=== PATIENT | female | born 1975 | race Asian ===

== ENCOUNTER 2016-12-10 09:16 | Outpatient (CLI) | payer BC ==
[2016-12-10 13:54] LABS: BASOPHILS % (AUTO) 0.7 %; EOSINOPHILS # (AUTO) 0.1 10^3/uL (0.0-0.7); EOSINOPHILS % (AUTO) 0.9 %; HCT - HEMATOCRIT 43.2 % (37.0-47.0); HGB - HEMOGLOBIN 14.9 g/dL (12.0-16.0); LYMPHOCYTES # (AUTO) 2.7 10^3/uL (1.5-3.5); LYMPHOCYTES % (AUTO) 36.1 %; MEAN CORPUSCULAR HEMOGLOBIN 31.4 pg (27.0-31.0); MEAN CORPUSCULAR HGB CONC 34.4 g/dL (32.0-36.0); MEAN CORPUSCULAR VOLUME 91.1 fL (81.0-99.0); MEAN PLATELET VOLUME 7.7 fL (7.9-10.8); MONOCYTES # (AUTO) 0.5 10^3/uL (0.0-1.0); NEUTROPHILS # (AUTO) 4.1 10^3/uL (1.5-6.6); NEUTROPHILS % (AUTO) 55.3 %; RED BLOOD COUNT 4.74 10^6/uL (4.20-5.40); RED CELL DISTRIBUTION WIDTH 12.3 % (12.0-15.0); UNCORRECTED WHITE BLOOD COUNT 7.3 x10^3/uL; WHITE BLOOD COUNT 7.3 x10^3/uL (4.8-10.8)
[2016-12-10 14:32] LABS: ALBUMIN/GLOBULIN RATIO 1.4 (1.0-2.2); BUN - BLOOD UREA NITROGEN 15 mg/dL (6-20); CALCIUM 9.3 mg/dL (8.5-10.3); CARBON DIOXIDE - CO2 29 mmol/L (21-32); CHLORIDE 98 mmol/L (101-111); CHOL/HDL RATIO 3.2 (<4.4); CHOLESTEROL 182 mg/dL; CREATININE 0.5 mg/dL (0.4-1.0); GFR - MDRD 135 (>89); GLUCOSE 101 mg/dL (70-100); HDL CHOLESTEROL 57 mg/dL; LDL/HDL RATIO 1.8 (<4.4); POTASSIUM 3.1 mmol/L (3.5-5.0); SODIUM 136 mmol/L (135-145); TOTAL PROTEIN 8.3 g/dL (6.7-8.2); TRIGLYCERIDES 108 mg/dL; VLDL CHOLESTEROL 22 mg/dL
== END 2016-12-10 23:59 | disposition home or self-care (01) ==
LOC: LAB.WCP 09:16
PROVIDERS: ATTEND Family Medicine
DX: I10 Essential (primary) hypertension (principal)
CPT/HCPCS: 36415; 80053; 80061; 82088; 84244; 85025

== ENCOUNTER 2017-04-11 16:14 | Outpatient (CLI) | payer BC | END 2017-04-11 16:15 | disposition home or self-care (01) | LOC: LAB.R 16:14 | PROVIDERS: ATTEND Family Medicine | DX: R31.9 Hematuria, unspecified (principal) | CPT/HCPCS: 87086 ==

== ENCOUNTER 2017-05-06 15:52 | Outpatient (CLI) | payer BC ==
--- NOTE | 2017-05-11 17:29 | Mammography Report ---
DIGITAL BILATERAL SCREENING MAMMOGRAM: 05/06/2017 COMPARISON STUDY: Mammogram 08/23/2014. DIGITAL TECHNIQUE: Routine CC and MLO projections were obtained of the breasts. FINDINGS: Scattered fibroglandular tissue is present within the breasts. There are no dominant avtar s, suspicious microcalcifications, or secondary signs of malignancy. In comparison to the previous st udies, there are no significant changes. There is a scar marker over the right breast. ASSESSMENT: NO MAMMOGRAPHIC EVIDENCE OF MALIGNANCY. NO SIGNIFICANT INTERVAL CHANGES. RECOMMENDATION: Screening mammography is recommended annually. BI-RADS category 2. Benign findings. STANDARD QUALIFYING STATEMENTS 1. This examination was reviewed with the aid of Computed-Aided Detection (CAD). 2. A negative or benign imaging report should not delay biopsy if clinically suspicious findings are present. Consider surgical consultation if warranted. More than 5% of cancers are not identified by i maging. 3. Dense breasts may obscure an underlying neoplasm. JOB #: [id number] EXT JOB #:[id number]
== END 2017-05-06 15:53 | disposition home or self-care (01) ==
LOC: DI.N 15:52
PROVIDERS: ATTEND Family Medicine
DX: Z12.31 Encounter for screening mammogram for malignant neoplasm of breast (principal)
CPT/HCPCS: 77067

== ENCOUNTER 2017-09-13 08:00 | Outpatient (CLI) | payer BC | END 2017-09-13 08:01 | disposition home or self-care (01) | LOC: LAB.WCP 08:00 | PROVIDERS: ATTEND Family Medicine | DX: N89.8 Other specified noninflammatory disorders of vagina (principal) | CPT/HCPCS: 87480; 87491; 87510; 87591; 87660 ==

== ENCOUNTER 2017-11-07 08:00 | Outpatient (CLI) | payer BC ==
[2017-11-07 13:13] LABS: ALBUMIN 4.2 g/dL (3.2-5.5); ALBUMIN/GLOBULIN RATIO 1.3 (1.0-2.2); ALKALINE PHOSPHATASE 44 IU/L (42-121); ALT ALANINE AMINOTRANSFERASE 17 IU/L (10-60); AST ASPARTATE AMINOTRANSFERASE 17 IU/L (10-42); BILIRUBIN,TOTAL 0.5 mg/dL (0.2-1.0); BUN - BLOOD UREA NITROGEN 14 mg/dL (6-20); CALCIUM 8.9 mg/dL (8.5-10.3); CARBON DIOXIDE - CO2 30 mmol/L (21-32); CHLORIDE 97 mmol/L (101-111); CREATININE 0.6 mg/dL (0.4-1.0); GFR - MDRD 109 (>89); GLUCOSE 104 mg/dL (70-100); SODIUM 135 mmol/L (135-145); TOTAL PROTEIN 7.5 g/dL (6.7-8.2)
[2017-11-07 13:24] LABS: HB2 TOTAL 15.2 g/dL; HEMOGLOBIN A1C 0.56 g/dL; HEMOGLOBIN A1C % 5.5 % (4.6-6.2)
[2017-11-07 13:27] LABS: BASOPHILS # (AUTO) 0.1 10^3/uL (0.0-0.1); BASOPHILS % (AUTO) 1.1 %; EOSINOPHILS # (AUTO) 0.5 10^3/uL (0.0-0.7); EOSINOPHILS % (AUTO) 5.5 %; HGB - HEMOGLOBIN 13.9 g/dL (12.0-16.0); LYMPHOCYTES # (AUTO) 1.9 10^3/uL (1.5-3.5); LYMPHOCYTES % (AUTO) 23.6 %; MEAN CORPUSCULAR HEMOGLOBIN 32.2 pg (27.0-31.0); MEAN CORPUSCULAR HGB CONC 35.4 g/dL (32.0-36.0); MEAN CORPUSCULAR VOLUME 90.9 fL (81.0-99.0); MEAN PLATELET VOLUME 7.1 fL (7.9-10.8); MONOCYTES # (AUTO) 0.5 10^3/uL (0.0-1.0); MONOCYTES % (AUTO) 5.7 %; NEUTROPHILS # (AUTO) 5.3 10^3/uL (1.5-6.6); NEUTROPHILS % (AUTO) 64.1 %; PLT - PLATELET COUNT 431 10^3/uL (130-450); RED BLOOD COUNT 4.34 10^6/uL (4.20-5.40); RED CELL DISTRIBUTION WIDTH 12.9 % (12.0-15.0); WHITE BLOOD COUNT 8.2 x10^3/uL (4.8-10.8)
== END 2017-11-07 23:59 ==
LOC: LAB.WCP 08:00
PROVIDERS: ATTEND Family Medicine
DX: Z00.00 Encounter for general adult medical examination without abnormal findings (principal); N92.0 Excessive and frequent menstruation with regular cycle
CPT/HCPCS: 36415; 80053; 83036; 84443; 85025

== ENCOUNTER 2017-11-10 07:33 | Outpatient (CLI) | payer BC ==
[2017-11-10 13:40] LABS: CALCIUM 8.6 mg/dL (8.5-10.3); CREATININE 0.5 mg/dL (0.4-1.0)
== END 2017-11-10 07:34 | disposition home or self-care (01) ==
LOC: LAB.WCP 07:33
PROVIDERS: ATTEND Family Medicine
DX: I10 Essential (primary) hypertension (principal)
CPT/HCPCS: 36415; 80048

== ENCOUNTER 2018-03-10 08:00 | Outpatient (CLI) | payer BC ==
[2018-03-10 12:26] LABS: BASOPHILS # (AUTO) 0.1 10^3/uL (0.0-0.1); BASOPHILS % (AUTO) 0.7 %; EOSINOPHILS # (AUTO) 0.2 10^3/uL (0.0-0.7); EOSINOPHILS % (AUTO) 2.1 %; HGB - HEMOGLOBIN 13.8 g/dL (12.0-16.0); LYMPHOCYTES # (AUTO) 1.8 10^3/uL (1.5-3.5); LYMPHOCYTES % (AUTO) 24.3 %; MEAN CORPUSCULAR HEMOGLOBIN 30.6 pg (27.0-31.0); MEAN CORPUSCULAR HGB CONC 34.1 g/dL (32.0-36.0); MEAN CORPUSCULAR VOLUME 89.6 fL (81.0-99.0); MEAN PLATELET VOLUME 7.1 fL (7.9-10.8); MONOCYTES # (AUTO) 0.6 10^3/uL (0.0-1.0); MONOCYTES % (AUTO) 7.8 %; NEUTROPHILS # (AUTO) 4.9 10^3/uL (1.5-6.6); NEUTROPHILS % (AUTO) 65.1 %; PLT - PLATELET COUNT 392 10^3/uL (130-450); RED BLOOD COUNT 4.52 10^6/uL (4.20-5.40); RED CELL DISTRIBUTION WIDTH 13.8 % (12.0-15.0); WHITE BLOOD COUNT 7.6 x10^3/uL (4.8-10.8)
== END 2018-03-10 08:01 ==
LOC: LAB.WCP 08:00
PROVIDERS: ATTEND Family Medicine
DX: N92.0 Excessive and frequent menstruation with regular cycle (principal)
CPT/HCPCS: 36415; 85025

== ENCOUNTER 2018-03-18 12:59 | Outpatient (CLI) | payer BC ==
--- NOTE | 2018-03-18 15:22 | Ultrasound Report ---
Reason: VAGINAL BLEEDING,ABNORMAL Procedure Date: 03/18/2018 Accession Number: [id number] / [id number] Procedure: US - Pelvic w/Transvaginal CPT Code: FULL RESULT: EXAM: PELVIC ULTRASOUND EXAM DATE: 03/18/2018 01:48 PM. CLINICAL HISTORY: VAGINAL BLEEDING,ABNORMAL. COMPARISON: 01/07/2015. TECHNIQUE: Realtime transabdominal pelvic scan performed to identify the uterus and adnexa and as an overview of other pelvic structures, followed by transvaginal scan to provide greater detail of the uterus and adnexa, with static image documentation. FINDINGS: Uterus: 7.4 x 4.1 x 4.3 cm, volume 68.2 cc. Anteverted position. Normal overall size and echotexture. Masses: None. Endometrium: 19 mm. Mildly thickened but otherwise normal in appearance without discrete mass or abnormal vascularity. Cervix: Unremarkable. Right Ovary: 4.2 x 2.6 x 4.2 cm, volume 24 cc. Normal echotexture and blood flow. Simple appearing cyst measures up to 3 cm. Left Ovary: 1.9 x 1.9 x 1.7 cm, volume 3.2 cc. Normal echotexture and blood flow. Free Fluid: None. Other: None. IMPRESSION: 1. Mildly thickened endometrium without discrete mass or abnormal vascularity. The primary differential diagnosis is endometrial hyperplasia. 2. Simple appearing right ovarian cyst. RADIA
== END 2018-03-18 13:00 | disposition home or self-care (01) ==
LOC: DI 12:59
PROVIDERS: ATTEND Family Medicine
DX: R93.8 Abnormal findings on diagnostic imaging of other specified body structures (principal); N83.291 Other ovarian cyst, right side
CPT/HCPCS: 76830; 76856

== ENCOUNTER 2018-05-16 16:04 | Outpatient (CLI) | payer BC | END 2018-05-16 16:05 | disposition home or self-care (01) | LOC: LAB.R 16:04 | PROVIDERS: ATTEND Obstetrics & Gynecology | DX: N76.0 Acute vaginitis (principal) | CPT/HCPCS: 87480; 87510; 87660 ==

== ENCOUNTER 2018-10-20 16:15 | Emergency (ER) | payer BC, OTHER ==
[2018-10-20 16:25] VITALS: BP 194/110
--- NOTE | 2018-10-20 16:55 | ED Physician Documentation ---
History of Present Illness - Stated complaint Stated Complaint: HBP - Chief complaint Chief Complaint: Cardiac - History obtained from History obtained from: Patient - History of Present Illness Timing: Chronic Pain level max: 0 Pain level now: 0 - Additonal information Additional information: 43-year-old female with past medical history of hypertension. Stopped her medications a year ago because her potassium was low. Has not seen her doctor since stopping her medications. Went to the [facility] today and noted that her blood pressure was high and sent here for evaluation. She is asymptomatic. No headache. No chest pain. No focal neurological deficits. No shortness of breath. No vision changes. Review of Systems Constitutional: denies: Fever, Chills Eyes: denies: Decreased vision, Photophobia Ears: denies: Ear pain Nose: denies: Rhinorrhea / runny nose, Congestion Cardiac: denies: Chest pain / pressure Respiratory: denies: Cough GI: denies: Nausea, Vomiting, Diarrhea Skin: denies: Rash Musculoskeletal: denies: Neck pain, Back pain Neurologic: denies: Focal weakness, Numbness, Headache PD PAST MEDICAL HISTORY - Past Medical History Past Medical History: Yes Cardiovascular: Hypertension - Past Surgical History Past Surgical History: No - Present Medications Home Medications: Ambulatory Orders Medication Instructions Recorded Confirmed Lisinopril 10 mg PO DAILY #30 tablet 10/20/18 - Allergies Allergies/Adverse Reactions: Allergies Allergy/AdvReac Type Severity Reaction Status Date / Time aspirin Allergy Unknown Verified 10/20/18 16:26 ibuprofen Allergy Unknown Verified 10/20/18 16:26 - Living Situation Living Situation: reports: With family Living Arrangement: reports: At home - Social History Does the pt smoke?: No Does the pt have substance abuse?: No PD ED PE NORMAL - Vitals Vital signs reviewed: Yes - General General: Alert and oriented X 3, No acute distress, Well developed/nourished - HEENT HEENT: PERRL, Moist mucous membranes - Neck Neck: Supple, no meningeal sign - Cardiac Cardiac: RRR, Strong equal pulses - Respiratory Respiratory: No respiratory distress, Clear bilaterally - Abdomen Abdomen: Soft, Non tender, Non distended - Derm Derm: Warm and dry, No rash - Extremities Extremities: No edema, No calf tenderness / cord - Neuro Neuro: Alert and oriented X 3 - Psych Psych: Normal mood, Normal affect Results - Vitals Vitals: Vital Signs - 24 hr 10/20/18 16:18 Temperature 36.8 C Heart Rate 80 Respiratory 18 Rate Blood Pressure 194/110 H O2 Saturation 98 Oxygen O2 Source Room air - EKG (time done) 1644 Rate: Rate (enter#) (72) Rhythm: NSR [place]: Normal Intervals: Normal [place] QRS: Normal Ischemia: Normal ST segments PD MEDICAL DECISION MAKING - ED course Complexity details: considered differential, d/w patient ED course: 43-year-old female with asymptomatic hypertension. We will start on lisinopril. We will have her follow-up with your doctor for further care. Patient counseled regarding signs and symptoms for which I believe and urgent re-evaluation would be necessary. Patient with good understanding of and agreement to plan and is comfortable going home at this time This document was made in part using voice recognition software. While efforts are made to proofread this document, sound alike and grammatical errors may occur. Departure - Departure Disposition: 01 Home, Self Care Clinical Impression: Hypertension Qualifiers: Hypertension type: unspecified Qualified Code(s): I10 - Essential (primary) hypertension Condition: Good Instructions: ED HTN Established Follow-Up: Medina Hammond DO [Primary Care Provider] - Within 1 week Prescriptions: Lisinopril 10 mg PO DAILY #30 tablet Comments: Your prescription was sent to [facility] in [place]. Return if you worsen. Follow-up with your doctor for further adjustment of your medications. You should take your blood pressure daily so your doctor can adjust your medications. Discharge Date/Time: 10/20/18 17:03
== END 2018-10-20 17:03 | disposition home or self-care (01) ==
LOC: ED 16:15
DX: I10 Essential (primary) hypertension (principal)
CPT/HCPCS: 84436; 84443; 85027; 93005; 99283

== ENCOUNTER 2018-10-20 16:59 | Outpatient (CLI) | payer BC, OTHER ==
[2018-10-20 17:13] LABS: HGB - HEMOGLOBIN 14.2 g/dL (12.0-16.0); MEAN CORPUSCULAR HEMOGLOBIN 31.4 pg (27.0-31.0); MEAN CORPUSCULAR HGB CONC 34.2 g/dL (32.0-36.0); MEAN CORPUSCULAR VOLUME 91.8 fL (81.0-99.0); MEAN PLATELET VOLUME 6.5 fL (7.9-10.8); RED BLOOD COUNT 4.52 10^6/uL (4.20-5.40); RED CELL DISTRIBUTION WIDTH 12.6 % (12.0-15.0); WHITE BLOOD COUNT 7.7 x10^3/uL (4.8-10.8)
[2018-10-20 18:04] LABS: T4 (THYROXINE) 9.85 ug/dL (6.09-12.23)
[2018-10-20 18:08] LABS: THYROID STIMULATING HORMONE 2.58 uIU/mL (0.34-5.60)
== END 2018-10-20 17:00 | disposition home or self-care (01) ==
LOC: LAB 16:59
PROVIDERS: ATTEND Obstetrics & Gynecology
DX: N93.9 Abnormal uterine and vaginal bleeding, unspecified (principal)
CPT/HCPCS: 36415; 84436; 84443; 85027

== ENCOUNTER 2018-10-30 12:01 | Outpatient (CLI) | payer BC, OTHER ==
--- NOTE | 2018-10-30 15:38 | Ultrasound Report ---
Reason: VAGINAL BLEEDING,ABNORMAL Procedure Date: 10/30/2018 Accession Number: [id number] / [id number] Procedure: US - Pelvic w/Transvaginal CPT Code: FULL RESULT: EXAM: PELVIC ULTRASOUND EXAM DATE: 10/30/2018 12:54 PM. CLINICAL HISTORY: VAGINAL BLEEDING,ABNORMAL. COMPARISON: PELVIC W/TRANSVAGINAL 03/18/2018 1:16 PM. TECHNIQUE: Realtime transabdominal pelvic scan performed to identify the uterus and adnexa and as an overview of other pelvic structures, followed by transvaginal scan to provide greater detail of the uterus and adnexa, with static image documentation. FINDINGS: Uterus: 7.2 x 4.3 x 5.0 cm, volume 81 cc. Anteverted retroflexed. position. Heterogeneous coarse echotexture with distorted serosal contour and distortion of the endometrial outline. Masses: A subserosal fundal mass measuring 1.4 x 1.0 x 1.1 cm is noted as well as a submucosal heterogeneous mass close to the cervix which measures 1.2 x 1.3 cm. Subjectively, there is the suggestion of additional fibroids which are not clearly demarcated. Endometrium: 13 mm. Distorted contour. Cervix: Nabothian cysts are noted. Right Ovary: 2.6 x 1.7 x 1.7 cm, volume 3.9 cc. Normal echotexture and blood flow. Left Ovary: 3.8 x 1.9 x 3.9 cm, volume 14.5 cc. Multiple follicles are seen, dominant follicle measures 1.6 x 1.4 x 1.6 cm. Otherwise, normal echotexture and blood flow. Free Fluid: None. Other: None. IMPRESSION: Fibroid uterus. RADIA
== END 2018-10-30 12:02 | disposition home or self-care (01) ==
LOC: DI 12:01
PROVIDERS: ATTEND Obstetrics & Gynecology
DX: N93.9 Abnormal uterine and vaginal bleeding, unspecified (principal); D25.0 Submucous leiomyoma of uterus; D25.2 Subserosal leiomyoma of uterus
CPT/HCPCS: 76830; 76856

== ENCOUNTER 2018-11-02 07:30 | Outpatient (CLI) | payer BC, OTHER ==
[2018-11-02 13:23] LABS: ALBUMIN 4.4 g/dL (3.2-5.5); ALBUMIN/GLOBULIN RATIO 1.3 (1.0-2.2); ALKALINE PHOSPHATASE 52 IU/L (42-121); ALT ALANINE AMINOTRANSFERASE 12 IU/L (10-60); AST ASPARTATE AMINOTRANSFERASE 18 IU/L (10-42); BILIRUBIN,TOTAL 0.8 mg/dL (0.2-1.0); BUN - BLOOD UREA NITROGEN 16 mg/dL (6-20); CALCIUM 9.1 mg/dL (8.5-10.3); CARBON DIOXIDE - CO2 26 mmol/L (21-32); CHLORIDE 101 mmol/L (101-111); CHOL/HDL RATIO 3.5 (<4.4); CHOLESTEROL 167 mg/dL; CREATININE 0.5 mg/dL (0.4-1.0); GFR - MDRD 134 (>89); GLUCOSE 97 mg/dL (70-100); HDL CHOLESTEROL 48 mg/dL; LDL CHOLESTEROL,CALCULATED 107 mg/dL; LDL/HDL RATIO 2.2 (<4.4); SODIUM 136 mmol/L (135-145); TOTAL PROTEIN 7.7 g/dL (6.7-8.2); VLDL CHOLESTEROL 12 mg/dL
== END 2018-11-02 07:31 | disposition home or self-care (01) ==
LOC: LAB.WCP 07:30
PROVIDERS: ATTEND Nurse Practitioner
DX: I10 Essential (primary) hypertension (principal); Z13.228 Encounter for screening for other metabolic disorders; Z13.220 Encounter for screening for lipoid disorders
CPT/HCPCS: 36415; 80053; 80061; 83721

== ENCOUNTER 2018-11-15 09:26 | Day surgery (SDC) | payer BC, OTHER ==
[2018-11-15 09:51] LABS: HCG UR QUAL NEGATIVE
[2018-11-15] MEDS ORDERED: LACTATED RINGERS 1,000 ML IV ONE ×2 (10:03→12:58)
--- NOTE | 2018-11-15 10:14 | ANESTHESIA ---
Pre-Anesthesia VS, & Labs - Diagnosis Abnormal uterine bleeding, fibroid uterus - Procedure myosure hysterscopic myomectomy, D&C, novasure endometrial ablation Vital Signs: Temp Pulse Resp BP Pulse Ox 36.7 C 86 16 123/85 H 98 11/15/18 09:30 11/15/18 09:30 11/15/18 09:30 11/15/18 09:30 11/15/18 09:30 Height 4 ft 11 in Weight (kg) 55.2 kg Body Mass Index 25.2 - NPO Other Last Fluid Intake: 4oz black coffee at 0630 - Is Patient ?: No - Lab Results Current Lab Results: 10/20/18 14 Hgb 41 Hct 442 Plat Lab results reviewed: Yes Home Medications and Allergies Home Medications: Ambulatory Orders Cetirizine [ZyrTEC] 10 mg PO ONCE 11/15/18 Cetirizine [ZyrTEC] 10 mg PO ONCE 11/15/18 lisinopril Allergies/Adverse Reactions: Allergies Allergy/AdvReac Type Severity Reaction Status Date / Time aspirin Allergy facial Verified 11/07/18 16:56 swelling ibuprofen Allergy facial Verified 11/07/18 16:56 swelling naproxen [From Naprosyn] Allergy facial Verified 11/07/18 16:56 swelling Anes History & Medical History - Anesthetic History Anesthesia Complications: reports: No previous complications - Medical History Cardiovascular: reports: Hypertension Pulmonary: reports: None Gastrointestinal: reports: None Urinary: reports: None Neuro: reports: None Musculoskeletal: reports: None Endocrine/Autoimmune: reports: None Blood Disorders: reports: None Skin: reports: None Smoking Status: Never smoker Psychosocial: reports: No issues indicated - Surgical History Gynecologic: Other (breast) Exam General: Alert, Oriented x3, Cooperative, No acute distress Dental: Partials Upper Mouth Openin Fingerbreadth Neck Mobility: Normal Mallampati classification: I Thyromental Distance: 4-6 cm Respiratory: Lungs clear, Normal breath sounds, No respiratory distress, No accessory muscle use Cardiovascular: Regular rate, Normal S1, Normal S2, No murmurs Mental/Cognitive Status: Alert/Oriented X3, Normal for patient Plan Anesthesia Type: General Consent for Procedure(s) Verified and Reviewed: Yes Code Status: Attempt Resuscitation ASA classification: 2-Mild systemic disease Is this case an emergency?: No
[2018-11-15] MEDS ORDERED: LIDOCAINE 1% 50 ML MDV ONE (11:53)
[2018-11-15] MEDS ORDERED: BUPIVACAINE 0.5%-EPI 1:200000 PF 30 ML VIAL ONE (11:54)
[2018-11-15] MEDS ORDERED: VASOPRESSIN 20 UNIT/ML VIAL ONE (12:04)
[2018-11-15] MEDS ORDERED: BUPIVACAINE 0.5% PF 30 ML VIAL ONE (12:19)
[2018-11-15] MEDS ORDERED: LIDOCAINE-MPF 1% 5 ML VIAL SUBQ ONE (12:25)
[2018-11-15] MEDS ORDERED: ONDANSETRON 4 MG/2 ML VIAL IVP ONE (12:25)
[2018-11-15] MEDS ORDERED: MIDAZOLAM 2 MG/2 ML VIAL IVP ONE (12:25)
[2018-11-15] MEDS ORDERED: ACETAMINOPHEN 1,000 MG/100 ML 100 ML IV ONE (12:25)
[2018-11-15] MEDS ORDERED: PROPOFOL 200 MG/20 ML VIAL IVP ONE (12:25)
[2018-11-15] MEDS ORDERED: fentaNYL 100 MCG/2 ML VIAL IVP ONE (12:25)
[2018-11-15] MEDS ORDERED: DEXAMETHASONE 4 MG/ML VIAL IVP ONE (12:25)
[2018-11-15] MEDS ORDERED: BUPIVACAINE 0.5% PF 30 ML VIAL INFIL ONE ×2 (12:32)
[2018-11-15] MEDS ORDERED: HYDROmorphone 0.5 MG/0.5 ML SYRINGE IVP PRN (12:56)
[2018-11-15] MEDS ORDERED: oxyCODONE 5 MG TABLET PO PRN (12:56)
[2018-11-15] MEDS ORDERED: ONDANSETRON 4 MG/2 ML VIAL IVP PRN (12:56)
--- NOTE | 2018-11-15 12:56 | OPERATIVE REPORT ---
Operative Report - General Procedure Date: 11/15/18 Planned Procedure: Hysteroscopic polypectomy vs. myomectomy, endometrial ablation Pre-Op Diagnosis: AUB, intracavitary mass Procedure Performed: Hysteroscopic polypectomy, endometrial ablation novasure Post Op Diagnosis: same - Procedure Note Primary Surgeon: Manuelito Anesthesia Technique: General LMA Pathology: endometrial sampling IV Fluids (mL): 500 Estimated Blood Loss (mL): 10 Urine Output (mL): 0 Findings: Endometrial polyp resected. Both ostea seen. Normal cavity. Complications: none
--- NOTE | 2018-11-15 12:59 | Discharge Plan ---
Discharge Plan Disposition: 01 Home, Self Care Condition: Good Diet: Regular Activity Restrictions: pelvic rest Shower Restrictions: No Driving Restrictions: Yes (not for 24 hours) No Smoking: If you smoke, Please STOP! Call for help. Follow-up with: Lisa Billings MD [Provider Admit Priv/Credential] -
--- NOTE | 2018-11-15 13:48 | OPERATIVE REPORT ---
DATE OF SERVICE: 11/15/2018 Physician: Lisa Billings MD PREOPERATIVE DIAGNOSES 1. Abnormal uterine bleeding. 2. Intracavitary mass on ultrasound. POSTOPERATIVE DIAGNOSES 1. Abnormal uterine bleeding. 2. Endometrial polyp. PROCEDURE PERFORMED 1. Hysteroscopic dilation and curettage, polypectomy. 2. NovaSure endometrial ablation. SURGEON: Lisa Billings MD SENIOR JAVA UI DEVELOPER: None. ANESTHESIA: General. ESTIMATED BLOOD LOSS: 10 mL INTRAVENOUS FLUIDS: 500 mL URINE OUTPUT: 0 mL COUNTS: Correct x2. COMPLICATIONS: None apparent. DISPOSITION: Stable to the recovery room. PROPHYLAXIS: SCD and NICANOR hose to bilateral lower extremities. No antibiotics indicated. SPECIMENS: Endometrial curettings to Pathology. FINDINGS: There was an endometrial polyp present in the uterine cavity. The endometrium was shaggy. Both tubal ostia were seen. There were no cavity-distorting masses. DESCRIPTION OF PROCEDURE: Patient was brought to the operating room, and then she was induced with g eneral anesthesia. She was placed in low lithotomy in [facility]. A bimanual examination re vealed an anteverted uterus that was normal in size. The patient was prepped with chlorhexidine, as she had an ALLERGY TO SHRIMP. The chlorhexidine was diluted 50:50. The vagina was irrigated copious ly at the end of the procedure. She was draped in the usual sterile fashion. An open-sided speculum was placed and a single-tooth tenaculum was applied to the anterior lip of the cervix. The cervix w as already dilated to 8 mm. The hysteroscope was inserted into the uterine cavity. The polyp was vi sualized and so the MyoSure was called for. The patient underwent MyoSure resection of her polyp. S he then underwent some endometrial thinning with the MyoSure in order to send a complete sample to [facility]. The hysteroscope was removed. The uterus sounded to 7 cm, the cervix was 3 cm long, intrac avitary length was 4.5 cm. The NovaSure device was inserted into the uterine cavity, per manufacture r's guidelines. The fan was opened and moved vigorously in the uterus to seat it appropriately. The width was 3.3 cm. Patient had a normal seal test. She then underwent an ablation cycle lasting 1 m inute and 15 seconds with a power of 73 doyle. The hysteroscope was reinserted into the uterine cavi ty and good desiccation was seen. Her fluid deficit was 310 mL. All instruments were removed from t he vagina. The blood was washed from her body. She was returned to the supine position prior to wak ing. TD: 11/15/2018 13:31
[2018-11-15 14:17] VITALS: BP 137/85
== END 2018-11-15 09:27 | disposition home or self-care (01) ==
LOC: SDS 09:26
PROVIDERS: ATTEND Obstetrics & Gynecology
PROC: 0UB98ZX Excision of Uterus, Via Natural or Artificial Opening Endoscopic, Diagnostic (ICD-10-PCS; principal; 2018-11-15 11:30)
PROC: 0UDB8ZX Extraction of Endometrium, Via Natural or Artificial Opening Endoscopic, Diagnostic (ICD-10-PCS; 2018-11-15 11:30)
DX: N93.9 Abnormal uterine and vaginal bleeding, unspecified (principal); D25.0 Submucous leiomyoma of uterus; D25.2 Subserosal leiomyoma of uterus; I10 Essential (primary) hypertension
CPT/HCPCS: 58558; 81025; J0131; J7120

== ENCOUNTER 2018-12-12 14:33 | Outpatient (CLI) | payer BC, OTHER ==
--- NOTE | 2018-12-13 11:02 | Mammography Report ---
Reason: SCREENING MAMMO Procedure Date: 12/12/2018 Accession Number: [id number] / [id number] Procedure: MGN - Screening Mammo Dig Bilat CPT Code: FULL RESULT: EXAM: Screening Mammo Dig Bilat DATE: 12/12/2018 3:00 PM CLINICAL HISTORY: Routine screening nulliparous patient TECHNIQUE: (B) - Bilateral CC and MLO views were obtained. COMPARISON: 05/06/2017 08/23/2014 PARENCHYMAL PATTERN: (VD) - The breasts demonstrate extremely dense parenchyma bilaterally, limiting the sensitivity of mammography. FINDINGS: No significant interval change. There are no suspicious masses, calcifications, or areas of distortion. IMPRESSION: Negative examination. BI-RADS category 1. RECOMMENDATION: (ANNUAL) - Recommend routine annual screening mammography. BI-RADS CATEGORY: (1) - Negative. STANDARD QUALIFYING STATEMENTS: 1. This examination was not reviewed with the aid of Computer-Aided Detection (CAD). 2. A negative or benign imaging report should not preclude biopsy if clinically suspicious findings are present. 3. Dense breasts may obscure an underlying neoplasm. 4. This examination was reviewed without the aid of 3D breast imaging (tomosynthesis).
== END 2018-12-12 14:34 | disposition home or self-care (01) ==
LOC: DI.N 14:33
DX: Z12.31 Encounter for screening mammogram for malignant neoplasm of breast (principal)
CPT/HCPCS: 77067

== ENCOUNTER 2019-01-02 13:00 | Outpatient (CLI) | payer BC, OTHER ==
[2019-01-02 19:22] LABS: BASOPHILS # (AUTO) 0.1 10^3/uL (0.0-0.1); BASOPHILS % (AUTO) 0.7 %; EOSINOPHILS # (AUTO) 0.1 10^3/uL (0.0-0.7); EOSINOPHILS % (AUTO) 1.5 %; HGB - HEMOGLOBIN 12.2 g/dL (12.0-16.0); LYMPHOCYTES # (AUTO) 1.9 10^3/uL (1.5-3.5); MEAN CORPUSCULAR HGB CONC 30.7 g/dL (32.0-36.0); MEAN CORPUSCULAR VOLUME 91.5 fL (81.0-99.0); MEAN PLATELET VOLUME 9.1 fL (7.9-10.8); MONOCYTES # (AUTO) 0.5 10^3/uL (0.0-1.0); MONOCYTES % (AUTO) 5.7 %; NEUTROPHILS # (AUTO) 6.8 10^3/uL (1.5-6.6); NEUTROPHILS % (AUTO) 71.8 %; PLT - PLATELET COUNT 428 10^3/uL (130-450); RED BLOOD COUNT 4.35 10^6/uL (4.20-5.40); RED CELL DISTRIBUTION WIDTH 12.6 % (12.0-15.0); WHITE BLOOD COUNT 9.5 x10^3/uL (4.8-10.8)
[2019-01-02 19:39] LABS: ALBUMIN 4.1 g/dL (3.2-5.5); ALBUMIN/GLOBULIN RATIO 1.1 (1.0-2.2); BILIRUBIN,TOTAL 0.6 mg/dL (0.2-1.0); CALCIUM 9.3 mg/dL (8.5-10.3); CREATININE 0.6 mg/dL (0.4-1.0); TOTAL PROTEIN 7.9 g/dL (6.7-8.2)
== END 2019-01-02 13:01 | disposition home or self-care (01) ==
LOC: LAB.WCP 13:00
PROVIDERS: ATTEND Physician Assistant Medical
DX: R10.32 Left lower quadrant pain (principal)
CPT/HCPCS: 36415; 80053; 83690; 85025

== ENCOUNTER 2019-01-08 14:43 | Outpatient (CLI) | payer BC, OTHER ==
--- NOTE | 2019-01-09 11:13 | Ultrasound Report ---
Reason: ABDOMINAL PAIN, LLQ Procedure Date: 01/08/2019 Accession Number: [id number] / [id number] Procedure: US - Pelvic w/Transvaginal CPT Code: FULL RESULT: EXAM: PELVIC ULTRASOUND EXAM DATE: 01/08/2019 03:53 PM. CLINICAL HISTORY: Abdominal pain, LLQ. COMPARISON: PELVIC W/TRANSVAGINAL 10/30/2018 12:13 PM. PELVIC W/TRANSVAGINAL 03/18/2018 1:16 PM. TECHNIQUE: Realtime transabdominal pelvic scan performed to identify the uterus and adnexa and as an overview of other pelvic structures, followed by transvaginal scan to provide greater detail of the uterus and adnexa, with static image documentation. FINDINGS: Uterus: 6.9 x 4.3 x 5.7 cm, volume 90 cc. Anteverted position. Normal overall size and echotexture. Masses: In the left posterior uterus is a 3.6 x 1.7 x 2.3 cm fibroid with submucosal component. Endometrium: 6.3 mm. Normal. Cervix: Unremarkable. Right Ovary: 3.5 x 1.7 x 2.3 cm, volume 7.8 cc. Normal echotexture and blood flow. Left Ovary: 5.5 x 4.0 x 4.0 cm, volume 46.5 cc. There is a 4.3 x 2.6 x 2.6 cm cyst. Blood flow is demonstrated by color Doppler. Free Fluid: None. Other: None. IMPRESSION: Left ovarian cyst as described, new or enlarged compared to October. Given that this is a new finding, it possibly accounts for the patient's pain. Recommend clinical management with consideration for imaging followup to resolution given symptoms. RADIA
== END 2019-01-08 14:44 | disposition home or self-care (01) ==
LOC: DI 14:43
PROVIDERS: ATTEND Physician Assistant Medical
DX: N83.202 Unspecified ovarian cyst, left side (principal)
CPT/HCPCS: 76830; 76856

== ENCOUNTER 2019-03-01 17:07 | Outpatient (CLI) | payer BC, OTHER ==
--- NOTE | 2019-03-04 09:25 | Ultrasound Report ---
Reason: OTHER OVARIAN CYST, LEFT SIDE Procedure Date: 03/01/2019 Accession Number: [id number] / [id number] Procedure: US - Pelvic w/Transvaginal CPT Code: FULL RESULT: EXAM: PELVIC ULTRASOUND EXAM DATE: 03/01/2019 06:56 PM. CLINICAL HISTORY: Left ovarian cyst. History of ablation. COMPARISON: PELVIC W/TRANSVAGINAL 01/08/2019 3:12 PM. TECHNIQUE: Realtime transabdominal pelvic scan performed to identify the uterus and adnexa and as an overview of other pelvic structures, followed by transvaginal scan to provide greater detail of the uterus and adnexa, with static image documentation. FINDINGS: Uterus: 6.8 x 4.6 x 5 cm, volume 82 cc. Anteverted position. Heterogeneous multi-fibroid appearance. Masses: Posterior fundal subserosal fibroid measuring 1.6 cm. Posterior intramural fibroid measuring 1.9 cm. Posterior intramural fibroid measuring 7 mm. Endometrium: 13 mm. Heterogeneous echotexture. Tiny cyst measuring 3 mm. No other mass identified. Cervix: Unremarkable. Nabothian cysts. Right Ovary: 2.5 x 1.9 x 2.4 cm, volume 6 cc. Dominant follicle measuring 17 mm. Unremarkable echotexture and blood flow. Left Ovary: 4.4 x 2.3 x 4.5 cm, volume 23.8 cc. Small complex cyst measuring 2.1 cm. Second complex cyst measuring 3.1 cm. Unremarkable echotexture and blood flow. Free Fluid: None. Other: None. IMPRESSION: 1. Mild heterogeneous uterine echotexture containing multiple probable fibroids. 2. Mild heterogeneous endometrium containing a tiny cyst measuring 3 mm. No other mass identified. 3. Left ovary contains two mildly complex hypoattenuating cystic structures, which may be hemorrhagic cysts. The largest measures 3.1 cm. Previous study demonstrated a cyst measuring 4.3 cm. RADIA
== END 2019-03-01 17:08 | disposition home or self-care (01) ==
LOC: DI 17:07
PROVIDERS: ATTEND Physician Assistant Medical
DX: N83.292 Other ovarian cyst, left side (principal); D25.2 Subserosal leiomyoma of uterus; D25.1 Intramural leiomyoma of uterus; N85.8 Other specified noninflammatory disorders of uterus
CPT/HCPCS: 76830; 76856

== ENCOUNTER 2019-10-25 14:41 | Outpatient (CLI) | payer BC, OTHER | END 2019-10-25 14:42 | disposition home or self-care (01) | LOC: COV 14:41 | PROVIDERS: ATTEND Family Medicine | DX: R05 Cough (principal) | CPT/HCPCS: 81599 ==

== ENCOUNTER 2019-11-19 17:29 | Emergency (ER) | payer BC, OTHER ==
[2019-11-19 18:13] LABS: BASOPHILS # (AUTO) 0.1 10^3/uL (0.0-0.1); BASOPHILS % (AUTO) 0.6 %; EOSINOPHILS # (AUTO) 0.3 10^3/uL (0.0-0.7); EOSINOPHILS % (AUTO) 2.5 %; HGB - HEMOGLOBIN 14.2 g/dL (12.0-16.0); LYMPHOCYTES # (AUTO) 2.9 10^3/uL (1.5-3.5); LYMPHOCYTES % (AUTO) 28.8 %; MEAN CORPUSCULAR HEMOGLOBIN 31.9 pg (27.0-31.0); MEAN CORPUSCULAR HGB CONC 34.5 g/dL (32.0-36.0); MEAN CORPUSCULAR VOLUME 92.6 fL (81.0-99.0); MEAN PLATELET VOLUME 8.5 fL (7.9-10.8); MONOCYTES # (AUTO) 0.8 10^3/uL (0.0-1.0); MONOCYTES % (AUTO) 8.3 %; NEUTROPHILS % (AUTO) 59.4 %; PLT - PLATELET COUNT 349 10^3/uL (130-450); RED BLOOD COUNT 4.45 10^6/uL (4.20-5.40); RED CELL DISTRIBUTION WIDTH 12.1 % (12.0-15.0)
[2019-11-19 18:16] LABS: BILIRUBIN,URINE NEGATIVE (NEGATIVE); GLUCOSE, URINE (UA) NEGATIVE (NEGATIVE); KETONES,URINE (UA) NEGATIVE (NEGATIVE); LEUKOCYTE ESTERASE, URINE SMALL (NEGATIVE); NITRITE,URINE NEGATIVE (NEGATIVE); OCCULT BLOOD,URINE LARGE (NEGATIVE); PH,URINE 6.5 PH (5.0-7.5); PROTEIN,URINE NEGATIVE (NEGATIVE); UROBILINOGEN,URINE 0.2 (NORMAL) E.U./dL (NORMAL)
[2019-11-19 18:17] LABS: CLARITY,URINE CLEAR (CLEAR)
[2019-11-19 18:18] LABS: HCG UR QUAL NEGATIVE
[2019-11-19] MEDS ORDERED: MORPHINE 2 MG/ML CARPUJECT IVP STA (18:18)
[2019-11-19 18:25] LABS: BACTERIA,URINE None Seen /HPF (None Seen); RBC,URINE 0-5 /HPF (0-5); SQUAMOUS EPITHELIAL CELL,UR MOD Squamous (<= Few)
[2019-11-19 18:26] LABS: ALBUMIN 4.7 g/dL (3.2-5.5); ALBUMIN/GLOBULIN RATIO 1.2 (1.0-2.2); BILIRUBIN,TOTAL 0.3 mg/dL (0.2-1.0); CALCIUM 9.3 mg/dL (8.5-10.3); CREATININE 0.6 mg/dL (0.4-1.0); TOTAL PROTEIN 8.6 g/dL (6.7-8.2)
--- NOTE | 2019-11-19 18:27 | ED Physician Documentation ---
History of Present Illness - Stated complaint Stated Complaint: ABD PAIN, BACK PAIN - Chief complaint Chief Complaint: Abd Pain - History obtained from History obtained from: Patient - History of Present Illness Timing: How many weeks ago (1) Pain level max: 8 Pain level now: 8 - Additonal information Additional information: 44-year-old female presents to the emergency department with left lower quadrant abdominal pain. This started approximately a week ago and is gradually worsened since that time. She is having vaginal spotting as well. No discharge. No itching. No pain. Has had ovarian cysts in the past. She states that this feels worse. She has not had any diarrhea or constipation. No changes in sexual partners. No IUD. No STD exposure. No fevers. Review of Systems Ten Systems: 10 systems reviewed and negative Constitutional: denies: Fever, Chills Ears: denies: Ear pain Nose: denies: Rhinorrhea / runny nose, Congestion Cardiac: denies: Chest pain / pressure Respiratory: denies: Cough GI: denies: Nausea, Vomiting, Diarrhea, Hematemesis, Bloody / black stool : denies: Dysuria, Frequency, Hesitancy, Discharge Skin: denies: Rash Musculoskeletal: denies: Neck pain, Back pain Neurologic: denies: Headache PD PAST MEDICAL HISTORY - Past Medical History Cardiovascular: Hypertension Respiratory: None Neuro: None Endocrine/Autoimmune: None GI: None : None HEENT: None Psych: None Musculoskeletal: None Derm: None - Past Surgical History 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 - Present Medications Home Medications: Ambulatory Orders Medication Instructions Recorded Confirmed lisinopriL [Lisinopril] 10 mg PO DAILY #30 tablet 10/20/18 11/15/18 Cetirizine [ZyrTEC] 10 mg PO ONCE 11/15/18 11/15/18 Hydrocodone/Acetaminophen 1 - 2 each PO Q6H PRN #14 tablet 11/19/19 [Hydrocodon-Acetaminophen 5-325] Norethindrone 0.35 mg PO DAILY #30 tablet 11/19/19 - Allergies Allergies/Adverse Reactions: Allergies Allergy/AdvReac Type Severity Reaction Status Date / Time aspirin Allergy facial Verified 11/19/19 17:45 swelling ibuprofen Allergy facial Verified 11/19/19 17:45 swelling naproxen [From Naprosyn] Allergy facial Verified 11/19/19 17:45 swelling - Social History Does the pt smoke?: No Smoking Status: Never smoker Does the pt drink ETOH?: No Does the pt have substance abuse?: No PD ED PE NORMAL - Vitals Vital signs reviewed: Yes - General General: Alert and oriented X 3, No acute distress, Well developed/nourished - HEENT HEENT: Moist mucous membranes - Neck Neck: Supple, no meningeal sign - Cardiac Cardiac: RRR, Strong equal pulses - Respiratory Respiratory: No respiratory distress, Clear bilaterally - Abdomen Abdomen: Soft, Non distended, Other (Tender to palpation left lower quadrant, right lower quadrant and suprapubic. No peritoneal signs) - Female Female : Pt declined - Back Back: No spinal TTP - Derm Derm: Warm and dry - Extremities Extremities: No edema, No calf tenderness / cord - Neuro Neuro: Alert and oriented X 3 - Psych Psych: Normal mood, Normal affect Results - Vitals Vitals: Vital Signs - 24 hr 11/19/19 11/19/19 11/19/19 17:46 17:52 19:52 Temperature 36.9 C 36.8 C Heart Rate 93 78 78 Respiratory 18 16 16 Rate Blood Pressure 139/91 H 112/65 122/82 H O2 Saturation 98 100 99 11/19/19 11/19/19 20:50 22:25 Temperature 36.7 C Heart Rate 62 86 Respiratory 16 12 Rate Blood Pressure 104/62 121/82 H O2 Saturation 99 99 Oxygen O2 Source Room air - Labs Labs: Laboratory Tests 11/19/19 11/19/19 11/19/19 18:00 18:07 18:07 WBC 10.0 RBC 4.45 Hgb 14.2 Hct 41.2 MCV 92.6 MCH 31.9 H MCHC 34.5 RDW 12.1 Plt Count 349 MPV 8.5 Neut # (Auto) 6.0 Lymph # (Auto) 2.9 [place] # (Auto) 0.8 Eos # (Auto) 0.3 Baso # (Auto) 0.1 Absolute Nucleated RBC 0.00 Nucleated RBC % 0.0 ESR Sodium 136 Potassium 3.9 Chloride 103 Carbon Dioxide 24 Anion Gap 9.0 BUN 11 Creatinine 0.6 Estimated GFR (MDRD) 108 Glucose 94 Calcium 9.3 Total Bilirubin 0.3 AST 16 ALT 12 Alkaline Phosphatase 54 C-Reactive Protein Total Protein 8.6 H Albumin 4.7 Globulin 3.9 Albumin/Globulin Ratio 1.2 Lipase 39 CA 125 Antigen Urine Color YELLOW Urine Clarity CLEAR Urine pH 6.5 Ur Specific [place] 1.015 Urine Protein NEGATIVE Urine Glucose (UA) NEGATIVE Urine Ketones NEGATIVE Urine Occult Blood LARGE H Urine Nitrite NEGATIVE Urine Bilirubin NEGATIVE Urine Urobilinogen 0.2 (NORMAL) Ur Leukocyte Esterase SMALL H Urine RBC 0-5 Urine WBC 4-5 Ur Squamous Epith Cells MOD Squamous H Urine Bacteria None Seen Ur Microscopic Review INDICATED Urine Culture Comments NOT INDICATED Urine HCG, Qual NEGATIVE 11/19/19 11/19/19 11/19/19 18:07 18:07 18:07 WBC RBC Hgb Hct MCV MCH MCHC RDW Plt Count MPV Neut # (Auto) Lymph # (Auto) [place] # (Auto) Eos # (Auto) Baso # (Auto) Absolute Nucleated RBC Nucleated RBC % ESR 28 H Sodium Potassium Chloride Carbon Dioxide Anion Gap BUN Creatinine Estimated GFR (MDRD) Glucose Calcium Total Bilirubin AST ALT Alkaline Phosphatase C-Reactive Protein < 1.0 Total Protein Albumin Globulin Albumin/Globulin Ratio Lipase CA 125 Antigen 73.3 H Urine Color Urine Clarity Urine pH Ur Specific [place] Urine Protein Urine Glucose (UA) Urine Ketones Urine Occult Blood Urine Nitrite Urine Bilirubin Urine Urobilinogen Ur Leukocyte Esterase Urine RBC Urine WBC Ur Squamous Epith Cells Urine Bacteria Ur Microscopic Review Urine Culture Comments Urine HCG, Qual - Rads (name of study) CT abdomen pelvis Radiology: Prelim report reviewed, EMP read contemporaneously, See rad report (Findings concerning for tubo-ovarian abscesses bilaterally. Gynecologic consultation is recommended.. 6 mm right upper nonobstructive renal calculus. ) Pelvic ultrasound Radiology: Prelim report reviewed, EMP read contemporaneously, See rad report (1. Heterogeneous fibroid uterus. 2. Enlargement of the ovaries. There are simp le cysts within the right ovary. There are complex hypoechoic structures possibly admissions representative of hemorrhagic cysts or endometriomas within the left ovary. 3. There are no sonographic findings suspicious for ovarian torsion. Non- measurement of venous flow within the right ovary is more likely a function of technical factors than pathology. ) PD MEDICAL DECISION MAKING - ED course Complexity details: reviewed results, re-evaluated patient, considered differential, d/w patient, d/w delivery consultant ED course: 44-year-old female with pelvic pain of unclear etiology. Possible bilateral tubo-ovarian abscess on CT scan. Ultrasound with enlarged ovaries, simple cyst in the right ovary complex cyst on the left ovary. Consulted gynecology. Dr. Richards came and evaluated the patient. She feels that this may be a post endometrial ablation syndrome. Patient does not have any risk factors for gonorrhea, chlamydia and PID. No leukocytosis or fever. CRP is negative. We will trial her on pain medication and norethindrone at home. Patient counseled regarding signs and symptoms for which I believe and urgent re-evaluation would be necessary. Patient with good understanding of and agreement to plan and is comfortable going home at this time This document was made in part using voice recognition software. While efforts are made to proofread this document, sound alike and grammatical errors may occur. Departure - Departure Disposition: 01 Home, Self Care Clinical Impression: Post endometrial ablation syndrome Condition: Good Instructions: ED Pelvic Pain [facility] Follow-Up: Medina Hammond DO [Primary Care Provider] - Melania Richards MD [Provider Admit Priv/Credential] - Prescriptions: Hydrocodone/Acetaminophen [Hydrocodon-Acetaminophen 5-325] 1 - 2 each PO Q6H PRN #14 tablet PRN Reason: pain Norethindrone 0.35 mg PO DAILY #30 tablet Comments: Follow-up with your doctor for further care. This appears to be a post endometrial ablation syndrome. Return if you worsen. Do not drink alcohol or drive while on narcotic pain medicine. Note that many narcotic pain relievers also contain tylenol/acetaminophen. Please ensure that your total dose of acetaminophen from all sources does not exceed 3 grams (3000mg) per day. You may constipated on this medication, take a stool softener such as "Colace" twice a day while you are on it. Also recommend a yptz-[id number]-uqyaiyb laxative such as senna or MiraLAX any day that you do not have a bowel movement. If you received narcotic pain medication in the emergency department, do not drive or operate machinery for the next 24 hours. Discharge Date/Time: 11/19/19 22:34
[2019-11-19] MEDS ORDERED: IOVERSOL 320 100 ML VIAL IVP ONE ×2 (18:28→19:15)
--- NOTE | 2019-11-19 19:15 | CT Report ---
Reason: LLShawn gonzalezn Procedure Date: 11/19/2019 Accession Number: [id number] / [id number] Procedure: CT - Abdomen/Pelvis W CPT Code: Final Report FULL RESULT: EXAM: CT ABDOMEN AND PELVIS EXAM DATE: 11/19/2019 06:48 PM. CLINICAL HISTORY: KARI alfred. COMPARISONS: None. TECHNIQUE: Routine helical CT imaging was performed through the abdomen and pelvis. IV contrast: 100 cc OPTIRAY 320. Enteric contrast: No. Reconstructions: Coronal and sagittal. In accordance with CT protocol optimization, one or more of the following dose reduction techniques were utilized for this exam: automated exposure control, adjustment of mA and/or KV based on patient size, or use of iterative reconstructive technique. FINDINGS: ABDOMEN: Lung Bases: Incompletely included lower lungs are grossly clear. Heart size is within normal limits. No basilar effusions. Liver: Unremarkable. Spleen: Unremarkable. Pancreas: Unremarkable. Gallbladder/Bile Ducts: Gallbladder is unremarkable. Biliary tree is normal caliber. Adrenal Glands: Unremarkable. Kidneys: No mass or hydronephrosis. 6 mm right upper renal calculus. Peritoneum/Mesentery/Bowel: No free fluid, free air, or collection. No intestinal obstruction or inflammation. The appendix is within normal limits. Lymph nodes: No mesenteric, periportal, or retroperitoneal lymphadenopathy. Vasculature: Abdominal aorta is nonaneurysmal. Portal vein is patent. Hepatic veins are patent. PELVIS: The bladder is unremarkable for the degree of distention. Uterus is present. Bilateral multiloculated fluid collections in the adnexa measuring 5.3 x 4.7 cm on the left and 3.5 x 3.1 cm on the right, with dilated fallopian tubes. No pelvic lymphadenopathy. Bones: No suspicious osseous lesions. IMPRESSION: Findings concerning for tubo-ovarian abscesses bilaterally. Gynecologic consultation is recommended.. 6 mm right upper nonobstructive renal calculus. RADIA
[2019-11-19] MEDS ORDERED: CEFOTETAN DISODIUM 2 GM in SODIUM CHLORIDE 0.9% MINIBAG 100 ML IV STA (19:26)
[2019-11-19] MEDS ORDERED: DOXYCYCLINE INJ 100 MG in SODIUM CHLORIDE 0.9% MINIBAG 100 ML IV STA (19:26)
[2019-11-19] MEDS ORDERED: SODIUM CHLORIDE 0.9% 1,000 ML IV ONE (19:26)
[2019-11-19] MEDS ORDERED: CEFOTETAN DISODIUM 1 GM VIAL ONE (19:46)
--- NOTE | 2019-11-19 20:02 | Ultrasound Report ---
Reason: pelvic pain, L Procedure Date: 11/19/2019 Accession Number: [id number] / [id number] Procedure: US - Pelvic w/Transvag+Doppler Comp CPT Code: Final Report FULL RESULT: EXAM: PELVIC ULTRASOUND WITH DOPPLERS CLINICAL HISTORY: Left pelvic pain COMPARISON: ABDOMEN/PELVIS W 11/19/2019 6:42 PM TECHNIQUE: Realtime transabdominal imaging performed to identify the uterus and adnexa and as an overview of other pelvic structures, followed by transvaginal imaging for better assessment of the endometrium and adnexa, with static image documentation. Color flow imaging and Doppler spectral analysis was performed to evaluate blood flow to the ovaries given pelvic pain and clinical concern for ovarian torsion. FINDINGS: Uterus: 6.7 x 4.6 x 4.3 cm, volume 69 cc. Anteverted position. Echotexture is heterogeneous. Masses: 1. Posterior intramural 3.1 x 2.8 x 2.8 Endometrium: 4 mm. Normal. Cervix: Unremarkable. Right Ovary: 4.4 x 3.7 x 4.4 cm, volume 37.9 cc. There is several hypoechoic foci within the right ovary which likely represent cysts. The largest measures 3.0 x 2.8 x 2.4 cm and is avascular and anechoic; this probably represents a simple cyst with a daughter cyst. Arterial blood flow is present. Venous flow is not demonstrated by Doppler. PSV 20.4 cm/sec. RI 0.6. Adnexa are unremarkable. Left Ovary: 6.9 x 5.3 x 4.7 cm, volume 89.1 cc. Heterogeneous echotexture. There is a homogeneous, hypoechoic avascular focus measuring 3.5 x 3.3 x 4.0 cm. There is a second lateral hypoechoic, somewhat heterogeneous, avascular structure measuring 3.7 x 2.8 x 4.2 cm. Arterial and venous blood flow are present. PSV 7.8 cm/sec. RI 0.7. Adnexa are unremarkable. Free Fluid: There is free fluid within the pelvis. Other: None. IMPRESSION: 1. Heterogeneous fibroid uterus. 2. Enlargement of the ovaries. There are simple cysts within the right ovary. There are complex hypoechoic structures possibly medical device sales representative of hemorrhagic cysts or endometriomas within the left ovary. 3. There are no sonographic findings suspicious for ovarian torsion. Non-measurement of venous flow within the right ovary is more likely a function of technical factors than pathology. RADIA
[2019-11-19] MEDS ORDERED: HYDROmorphone 1 MG/ML CARPUJECT IVP STA (20:07)
[2019-11-19 22:26] VITALS: BP 121/82
--- NOTE | 2019-11-19 23:00 | CONSULTATION NOTE ---
Referring Provider Name of Referring Provider:: Dr. Mendoza Consult Date: 11/19/19 Chief Complaint - Chief Complaint Chief Complaint: pelvic pain and bleeding History of Present Illness - Admitted From Admitted From:: ER - History Obtained From Records Reviewed: [facility] History obtained from: Patient - History of Present Illness HPI Comment/Other: Patient is a 44-year-old G0 who presents with left lower quadrant pain and back pain. Patient underwent an endometrial ablation approximately 1 year ago for dysfunctional uterine bleeding.He is continued to have cyclic bleeding manifested as spotting. She is currently spotting at present.She is sexually active with a male partner. Last intercourse was over 2 weeks ago. She does not use any contraception. She is a long history of pelvic pain specifically left lower quadrant pain with serial ultrasounds done over the last [address] scan was performed this evening. CT scan noted to "bilateral multiloculated fluid collections in the adnexa measuring 5.3 x 5.7 cm on the left and 3.5 x 3.1 cm on the right with dilated fallopian tubes. No pelvic lymphadenopathy. No free fluid or omental caking." Impression raised concerns for possible bilateral TOA. Patient is afebrile with a white blood cell count of 10. CRP was sent and was within normal limits. CA 25 was mildly elevated at 73.3. A pelvic ultrasound was performed, which showed bilateral cystic ovaries. The left ovary was 6.9 x 5.3 x 4.7 With homogeneous avascular hypoechoic mass measuring 3.5 x 3.3 x 4.0 which was noted to be consistent with an endometrioma versus a collapsing corpus luteum cyst. At this time free fluid was noted in th e pelvis and the Adnexa were stated to be "unremarkable". Patient rated the pelvic ultrasound to be 8 out of 10 in terms of pain. Patient is in a long-term monogamous relationship with one male partner. Denies other high risk sexual behaviors that would predispose her to PID, to her knowledge. Reports also having bowel gas. Denies nausea/vomiting/diarrhea.No abdominal distention, early satiety, or change in weight. UA did show large red blood cells with mild leukocytes. Patient does note that she is spotting consistent with post ablation menses. hCG is negative. 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: Other Meds/Allgy - Home Medications Home Medications: Ambulatory Orders Medication Instructions Recorded Confirmed lisinopriL [Lisinopril] 10 mg PO DAILY #30 tablet 10/20/18 11/15/18 Cetirizine [ZyrTEC] 10 mg PO ONCE 11/15/18 11/15/18 Hydrocodone/Acetaminophen 1 - 2 each PO Q6H PRN #14 tablet 11/19/19 [Hydrocodon-Acetaminophen 5-325] Norethindrone 0.35 mg PO DAILY #30 tablet 11/19/19 - Allergies Allergies/Adverse Reactions: Allergies Allergy/AdvReac Type Severity Reaction Status Date / Time aspirin Allergy facial Verified 11/19/19 17:45 swelling ibuprofen Allergy facial Verified 11/19/19 17:45 swelling naproxen [From Naprosyn] Allergy facial Verified 11/19/19 17:45 swelling Exam - Vital Signs Vital Signs: Vital Signs x48h Temp Pulse Resp BP Pulse Ox 11/19/19 22:25 98.1 F 86 12 121/82 H 99 11/19/19 20:50 62 16 104/62 99 11/19/19 19:52 78 16 122/82 H 99 11/19/19 17:52 98.2 F 78 16 112/65 100 11/19/19 17:46 98.4 F 93 18 139/91 H 98 - Physical Exam General Appearance: positive: No acute distress Respiratory: positive: No respiratory distress Cardiovascular: positive: Other (RR) Abdomen: positive: Other (Mild TTP in LLQ but overall NT/ND. No guarding) Skin: positive: Color nml Extremities: positive: Non-tender, No pedal edema Neurologic/Psychiatric: positive: Oriented x3 Comments/Other: TABLEAU ARCHITECT: Normal-appearing external female genitalia. Normal Bartholin's, Ladera's, urethral meatus, and anus. Speculum was inserted. Vaginal mucosa is pink, rugated, physiologic discharge. There is a small amount of dark blood and mucus consistent with menses.Cervix is nulliparous and without lesions or discharge other than mucus and menstrual blood.Bimanual exam reveals no cervical motion tenderness. Anteverted uterus without fundal tenderness. No tenderness elicited with manipulation of uterine position. Fullness noted on left side with minimal discomfort. Unremarkable right-sided adnexal exam. Conclusion/Plan - Diagnosis Diagnosis: 44-year-old G0 with pelvic pain in the setting of post ablation menses. Differential included tubo-ovarian abscess, ovarian neoplasm, post ablation syndrome and possible endometriosis. - Plan Plan: is ruled out with a negative hCG Tubo-ovarian abscess less concerning given that patient is afebrile, with a normal white blood cell count and negative CRP and pelvic exam was negative for CMT. Ovarian neoplasm loweron differential due to the nature of the cystic ovaries, lack of pelvic LAD, significant free fluid. CA-125 elevation appropriate for premenopausal woman in active menses. Adnexa are noted to be dilated with likely some sort of hydrosalpinx on the CT scan. Adnexa are noted to be unremarkable on pelvic ultrasound. Of note CT scan showed no free fluid in the pelvis. Pelvic ultrasound did show free fluid in the pelvis. High suspicion for post ablation syndrome with menstrual blood accumulating in the cornua of the uterus and the dilating the fallopian tubes. The pressure from the pelvic ultrasound may have massaged te fallopian tubes and extruded the contents into the pelvis, resolving hydrosalpinx and resulting in new onset free fluid. Recommend alleviation of immediate discomfort. NSAID recommended but patient has severe allergy. Will defer to ER Attending with regard to pain management. At patient's request, reviewed clinical scenario with patient's partner. Recommended suppression of menses as much as possible with hromonal intervention. Shoudl avoid estrogen given hx of poorly controlled HTN and age > 35; recommend progesterone therapy. Ultimately, would recommend hysterectomy with salpingectomy. Surgery not a timely option given pandemic restrictions on OR resources. -Recommend starting norethindrone 35 mcg po daily to reduce menstrual flow and manage potential endometriosis. Recommend FU in OBGYN clinic. Thank you for including me in care of this patient. A total of 60 minutes was spent with patient, more than 50% was spent in face to face staff genetic counselor as well as in review of records. - Lab Results Fish Bones: 11/19/19 18:07 11/19/19 18:07
[2019-11-20 21:17] LABS: TRICHOMONAS VAGINALIS DNA NEGATIVE (NEGATIVE)
== END 2019-11-19 22:34 | disposition home or self-care (01) ==
LOC: ED 17:29
DX: N99.85 Post endometrial ablation syndrome (principal); I10 Essential (primary) hypertension; N83.202 Unspecified ovarian cyst, left side; N83.201 Unspecified ovarian cyst, right side; D25.1 Intramural leiomyoma of uterus
CPT/HCPCS: 36415; 74177; 76830; 76856; 80053; 81001; 81025; 81599; 83690; 85025; 85651; 86140; 86304; 87491; 87591; 87661; 93975; 96361; 96365; 96366; 96368; 96375; 99284; J1170; Q9967; 81003; 87086

== ENCOUNTER 2019-12-03 08:00 | Outpatient (CLI) | payer BC, OTHER ==
[2019-12-04 20:03] LABS: CANDIDA GROUP DNA NEGATIVE (NEGATIVE); CANDIDA KRUSEI DNA NEGATIVE (NEGATIVE); TRICHOMONAS VAGINALIS DNA NEGATIVE (NEGATIVE)
== END 2019-12-03 23:59 | disposition home or self-care (01) ==
LOC: LAB.R 08:00
PROVIDERS: ATTEND Obstetrics & Gynecology
DX: N89.8 Other specified noninflammatory disorders of vagina (principal)
CPT/HCPCS: 87661; 87801

== ENCOUNTER 2020-01-21 10:54 | Outpatient (CLI) | payer BC, OTHER ==
[2020-01-21 12:20] LABS: BASOPHILS # (AUTO) 0.1 10^3/uL (0.0-0.1); BASOPHILS % (AUTO) 0.8 %; EOSINOPHILS # (AUTO) 0.2 10^3/uL (0.0-0.7); EOSINOPHILS % (AUTO) 2.4 %; HGB - HEMOGLOBIN 13.7 g/dL (12.0-16.0); LYMPHOCYTES # (AUTO) 2.1 10^3/uL (1.5-3.5); LYMPHOCYTES % (AUTO) 33.5 %; MEAN CORPUSCULAR HGB CONC 34.5 g/dL (32.0-36.0); MEAN CORPUSCULAR VOLUME 92.8 fL (81.0-99.0); MEAN PLATELET VOLUME 9.3 fL (7.9-10.8); MONOCYTES # (AUTO) 0.6 10^3/uL (0.0-1.0); MONOCYTES % (AUTO) 8.7 %; NEUTROPHILS # (AUTO) 3.5 10^3/uL (1.5-6.6); NEUTROPHILS % (AUTO) 54.3 %; PLT - PLATELET COUNT 404 10^3/uL (130-450); RED BLOOD COUNT 4.28 10^6/uL (4.20-5.40); RED CELL DISTRIBUTION WIDTH 12.5 % (12.0-15.0); WHITE BLOOD COUNT 6.4 x10^3/uL (4.8-10.8)
== END 2020-01-21 10:55 | disposition home or self-care (01) ==
LOC: LAB 10:54
PROVIDERS: ATTEND Obstetrics & Gynecology
DX: Z01.812 Encounter for preprocedural laboratory examination (principal); N89.8 Other specified noninflammatory disorders of vagina; N93.9 Abnormal uterine and vaginal bleeding, unspecified; N99.85 Post endometrial ablation syndrome; Z20.828 Contact with and (suspected) exposure to other viral communicable diseases
CPT/HCPCS: 36415; 81599; 85025

== ENCOUNTER 2020-01-23 07:55 | Day surgery (SDC) | payer BC, OTHER ==
[~2020-01-23 07:55] MED LIST: ACETAMINOPHEN 1,000 MG/100 ML 100 ML IV ONE; CEFAZOLIN SODIUM IN 0.9 % NACL 2 GM/100 ML BAG IV ONE; CELECOXIB 100 MG CAPSULE PO ONE; GABAPENTIN 400 MG CAPSULE ONE
[2020-01-23] MEDS ORDERED: MIDAZOLAM 2 MG/2 ML VIAL IVP ONE (07:56)
[2020-01-23] MEDS ORDERED: ROCURONIUM 50 MG/5 ML VIAL IVP ONE (07:56)
[2020-01-23] MEDS ORDERED: PROPOFOL 200 MG/20 ML VIAL IVP ONE (07:56)
[2020-01-23] MEDS ORDERED: ESMOLOL 100 MG/10 ML VIAL IVP ONE (07:56)
[2020-01-23] MEDS ORDERED: DEXAMETHASONE 4 MG/ML VIAL IVP ONE (07:56)
[2020-01-23 08:10] LABS: HCG UR QUAL NEGATIVE
[2020-01-23] MEDS ORDERED: LACTATED RINGERS 1,000 ML IV ONE ×2 (08:17→16:00)
--- NOTE | 2020-01-23 09:00 | ANESTHESIA ---
Pre-Anesthesia VS, & Labs - Diagnosis abnormal uterine bleeding - Procedure laparoscopic vaginal hysterectomy Vital Signs: Temp Pulse Resp BP Pulse Ox 36.1 C L 85 16 142/83 H 98 01/23/20 08:00 01/23/20 08:00 01/23/20 08:00 01/23/20 08:00 01/23/20 08:00 Height 4 ft 11 in Weight (kg) 56 kg Body Mass Index 25.6 - NPO >8 hours - Is Patient ?: No - Lab Results Current Lab Results: Laboratory Tests 01/23/20 08:15: POC Whole Bld Glucose 100 Home Medications and Allergies Home Medications: Ambulatory Orders Multivitamin 1 each PO DAILY 01/21/20 Cetirizine [ZyrTEC] 10 mg PO ONCE 11/15/18 Multivitamin 1 each PO DAILY 01/21/20 Allergies/Adverse Reactions: Allergies Allergy/AdvReac Type Severity Reaction Status Date / Time aspirin Allergy facial Verified 11/19/19 17:45 swelling ibuprofen Allergy facial Verified 11/19/19 17:45 swelling naproxen [From Naprosyn] Allergy facial Verified 11/19/19 17:45 swelling shrimp Allergy Anaphylaxis Verified 01/21/20 10:17 Anes History & Medical History - Anesthetic History Anesthesia Complications: reports: No previous complications - Medical History Cardiovascular: reports: Hypertension Pulmonary: reports: Pneumonia Gastrointestinal: reports: None Urinary: reports: None Neuro: reports: None Musculoskeletal: reports: Chronic back pain Endocrine/Autoimmune: reports: None Blood Disorders: reports: None Skin: reports: None Smoking Status: Never smoker - Surgical History Gynecologic: Endometrial ablation, Other Exam General: Alert Dental: WNL Mouth Openin Fingerbreadth Neck Mobility: Normal Mallampati classification: II Thyromental Distance: greater than 6 cm Respiratory: Lungs clear Cardiovascular: Regular rate Plan Anesthesia Type: General Consent for Procedure(s) Verified and Reviewed: Yes Code Status: Attempt Resuscitation ASA classification: 2-Mild systemic disease Is this case an emergency?: No
[2020-01-23] MEDS ORDERED: SCOPOLAMINE PATCH TOP ONE (09:12)
[2020-01-23] MEDS ORDERED: SCOPOLAMINE PATCH TOP SCH (10:00)
[2020-01-23] MEDS ORDERED: BUPIVACAINE 0.25% PF 30 ML VIAL ONE (10:46)
[2020-01-23] MEDS ORDERED: METHYLENE BLUE 0.5% 50 MG/10 ML AMPULE ONE ×2 (10:46→12:38)
[2020-01-23] MEDS ORDERED: SODIUM CHLORIDE 0.9% 10 ML ONE (10:47)
[2020-01-23] MEDS ORDERED: VASOPRESSIN 20 UNIT/ML VIAL ONE (10:47)
[2020-01-23] MEDS ORDERED: METHYLENE BLUE 0.5% 50 MG/10 ML AMPULE IR ONE ×2 (10:56)
[2020-01-23] MEDS ORDERED: BUPIVACAINE 0.25%-EPI 1:200000 PF 30 ML VIAL SUBQ ONE (10:56)
[2020-01-23] MEDS ORDERED: VASOPRESSIN 20 UNIT/ML VIAL IVP ONE (10:57)
[2020-01-23] MEDS ORDERED: BUPIVACAINE 0.25% PF 30 ML VIAL SUBQ ONE ×2 (11:15)
[2020-01-23] MEDS ORDERED: ONDANSETRON 4 MG/2 ML VIAL ONE (17:38)
[2020-01-23] MEDS ORDERED: LIDOCAINE JELLY 2% 6 ML JEL.PF.APP UR ONE (17:50)
[2020-01-23] MEDS ORDERED: LIDOCAINE JELLY 2% 6 ML JEL.PF.APP ONE (17:53)
[2020-01-23] MEDS ORDERED: LACTATED RINGERS 500 ML IV ONE (18:20)
--- NOTE | 2020-01-23 18:26 | OPERATIVE REPORT ---
Operative Report - General Procedure Date: 01/23/20 Planned Procedure: Laparoscopic assisted vaginal hysterectomy Pre-Op Diagnosis: Pelvic pain, post-ablation syndrome Procedure Performed: Laparoscopic assisted vaginal hysterectomy, lysis of significant adhesions, ovarian cystectomy. Cystoscopy. Post Op Diagnosis: Same and severe adhesive disease/endometriosis, ovarian cysts - Procedure Note Primary Surgeon: Lorna Richards MD Secondary Surgeon: Mckenna Castro MD Anesthesia Provider: Darek Edwards CRNA and Cheri Blum CRNA Anesthesia Technique: General ET tube Pathology: Uterus and cervix. Inflammatory peritoneal tissue and adnexal tissue. IV Fluids (mL): 2,150 Estimated Blood Loss (mL): 250 Urine Output (mL): 450 Indications: Patient is a 44 yo female with severe pelvic pain s/p endometrial ablation and hydrosalpinx on CT Scan. Pain unmitigated with medical management. Desires definitive management with hysterectomy. Findings: Severe adhesive disease obscuring anatomy, frozen pelvis, multiple adnexal masses and endometrioma. Pockets of endometrial fluid/old blood within adhesions. Tubes enlarged and distended with [presumed] menstrual blood. Multiple large ovarian cysts with endometrial fluid. Normal appearing cervix. Cystoscopy completed post-operatively showed bilateral ureteral jets. Small, <2 mm suture within bladder mucosa, smaller than cross section of cystoscopy scissor blade. Left in place due to difficulty in removal attempts from cystoscopic approach and unchanges in position after releasing vaginal sutures. Reviewed with [facility] and no concerns with expectant management. Complications: Small suture embedded in bladder mucosa, approximately 2 mm in greatest dimension. Unable to remove via cystoscopy and could not remove post-removal of vaginal cuff suture. - Other Other Information/Narrative: Risks benefits and alternatives of the procedure were reviewed. Consent was again confirmed. Patient was brought to the operating room and underwent general anesthesia. She was placed in dorsal lithotomy position with legs resting in yellowfin stirrups. SCDs were in place and activated. Cefazolin 2 g IV was administered prior to start of procedure. She was prepped and draped in the usual sterile fashion. Surgical timeout was performed. Bimanual exam was performed. Sterile speculum was placed and Plant Etiologist uterine manipulator was placed, confirming that the inner cup was flush with the vaginal fornices. It was held in position withe [employer]. The base of the umbilicus was anesthetized with intradermal injection of 0.25% Marcaine. A 5 mm skin incision was made with a scalpel. A 5 mm blunt trocar was inserted under direct visualization using Visiport. Once the port was confirmed to be placed intraperitoneally, the abdomen was insufflated to 15 mmHg with CO2 gas Exploration of the abdomen and pelvis was confirmed that no injury was sustained with placement of the trocar. Severe endometriosis vspost-inflammatory changes resulting is severe adhesive disease was noted on entry. An additional 5 mm ports was placed in the right. Ligasure was used to release some adhesions and prepare safe insertion point for a 10 mm port to be placed in the left lower quadrants. Both right and left ports were placed, taking care to avoid the epigastric arteries, while under direct visualization via laparoscopic guidance. The abdomen was explored with the laparoscope, with findings as noted. The anatomy was not readily identifiable. Attempts to restore the anatomy were made with gentle blunt dissected. The right Fallopian tube was grasped at the cornua, elevated and resected from the underlying mesosalpinx with the LigaSure bipolar sealing and cutting device towards the distal end. It was removed from the pelvis through the 10 mm port. A large ovarian cyst was embedded in the posterior aspect of the uterus, obscurring the cul de sac. It was carefully dissected out, taking care to avoid bowel and ureters. An additional cyst was removed a a similar manner. An Endocatch bag was inserted through the 10 cm port and the dissected adnexal tissue, including cysts, were removed from the field. The right round ligament was identified and was transected with the Ligasure. The uterine ovarian ligament was transected using the LigaSure bipolar device. A bladder flap was mobilized by dividing the round ligaments using the bipolar cutting forceps, and the peritoneum on the vesicouterine fold was incised to mobilize the bladder. Once further mobility of the uterus was achieved, this process was repeated in the left. Careful dissection of adherent tissue, all noted ot be absent of bowel, was performed from cephalad to caudad direction, allowing adhesions to fall away from the cervix and uterine arteries. Once the colpotomy ring was skeletonized and in position, the uterine arteries were sealed using the bipolar forceps at the level of the colpotomy ring. This was repeated on the left aspect of the uterus in the same manner. Colpotomy was performed using the Harmonic scalpel, resulting in separation of the uterus and attached tubes. The uterus was then then delivered through the vagina. Attention was then turned to the vaginal cuff closure. The abdomen was desufflated and the abdominal surgical field was covered with sterile towels. A weighted speculum was placed in the vagina. Long Allis clamps were used to grasp the edges of the peritoneum. The peritoneum was closed with a running Pu rse string suture using 2-0 Vicryl. The uterosacral ligaments were then grasped with long Allis clamps bilaterally. 0 Vicryl suture was used to transfix the uterosacral ligaments and then fix them to the anterior and posterior aspects of the vaginal cuff bilaterally, thus fixing the uterosacral ligaments of the vaginal fornices. The vaginal cuff closure was then closed in a transverse fashion using interrupted [id number] suture using 0 Vicryl. Good hemostasis was noted. We again returned to the abdominal surgical field after removing outer gloves. The abdomen was again insufflated. The vaginal cuff was visualized internally and noted to have good hemostasis. However, there was diffuse superficial oozing from all beds from which adhesions had been removed. The pelvis was carefully irrigated and suctioned. Surgiflo thrombin gel was applied to all irritated surfaces. A Dimas-Clifton closure device was used to close the left sided 10 mm port. The Surgiflo bed was observed again and good hemostasis was noted. Good hemostasis was noted. The abdomen was partially desufflated. Pedicles were observed under decreased pressure and good hemostasis was again confirmed. All instruments were removed from the abdomen. Skin was closed with interrupted subcuticular stitches using 4-0 Monocryl. Dermabond was applied over the suture sites. We then turned out attention to the cystoscopy portion of the procedure. Methylene blue was administered to the patient via IV.l Bilateral ureteral jets were observed. As noted, a suture of less than 2 mm in greatest dimension was noted above the ureters and out of the trigone. Attempts were made to remove the suture with cystoscopic scissors but the suture was smaller than the blade of the cysto teddy. Attempts were discontinued to avoid potential trauma to the bladder mucosa. Vaginal suture was released but suture was unchanged in position. The decision was made to leave the suture in place. Conferred with Dr. Enriquez of [facility]. Based on the size and location of the defect, no further intervention or follow-up was recommended. The final sponge needle and instrument counts were correct at completion of the procedure patient was awakened taken to the postanesthesia care unit in stable condition. This was a complex and complicated surgery due to severe adhesive disease and endometriosis and required substantial additional operative time to safely complete the procedure.
[2020-01-23] MEDS: HYDROmorphone 0.5 MG/0.5 ML SYRINGE ONE ×2 (18:50→18:58)
[2020-01-23] MEDS ORDERED: fentaNYL 100 MCG/2 ML VIAL ONE (19:16)
[2020-01-23] MEDS: ceFAZolin 2 GM in SODIUM CHLORIDE 0.9% 100ML 100 ML IV SCH (20:28)
[2020-01-23] MEDS: LACTATED RINGERS 1,000 ML IV SCH (20:28)
[2020-01-23] MEDS: DOCUSATE SODIUM 100 MG CAPSULE PO SCH (22:23)
[2020-01-23] MEDS: GABAPENTIN 300 MG CAPSULE PO SCH (22:24)
[2020-01-24] MEDS: ceFAZolin 2 GM in SODIUM CHLORIDE 0.9% 100ML 100 ML IV SCH ×2 (03:03→12:00)
[2020-01-24] MEDS: oxyCODONE 5 MG TABLET PO PRN ×2 (04:52→14:43)
[2020-01-24 05:04] LABS: BASOPHILS % (AUTO) 0.3 %; EOSINOPHILS % (AUTO) 0.1 %; HGB - HEMOGLOBIN 9.8 g/dL (12.0-16.0); LYMPHOCYTES # (AUTO) 2.2 10^3/uL (1.5-3.5); LYMPHOCYTES % (AUTO) 21.8 %; MEAN CORPUSCULAR HEMOGLOBIN 30.7 pg (27.0-31.0); MEAN CORPUSCULAR HGB CONC 32.5 g/dL (32.0-36.0); MEAN CORPUSCULAR VOLUME 94.7 fL (81.0-99.0); MEAN PLATELET VOLUME 8.5 fL (7.9-10.8); MONOCYTES % (AUTO) 9.7 %; NEUTROPHILS # (AUTO) 6.9 10^3/uL (1.5-6.6); NEUTROPHILS % (AUTO) 67.6 %; PLT - PLATELET COUNT 243 10^3/uL (130-450); RED BLOOD COUNT 3.19 10^6/uL (4.20-5.40); WHITE BLOOD COUNT 10.2 x10^3/uL (4.8-10.8)
[2020-01-24 05:13] LABS: CALCIUM 7.8 mg/dL (8.5-10.3); CREATININE 0.7 mg/dL (0.4-1.0)
[2020-01-24] MEDS: GABAPENTIN 300 MG CAPSULE PO SCH ×2 (07:14→13:54)
[2020-01-24] MEDS: LACTATED RINGERS 1,000 ML IV SCH (07:15)
[2020-01-24] MEDS ORDERED: ENOXAPARIN 40 MG/0.4 ML SYRINGE SUBQ SCH (09:00)
[2020-01-24] MEDS: DOCUSATE SODIUM 100 MG CAPSULE PO SCH (09:09)
[2020-01-24] MEDS ORDERED: ceFAZolin 1 GM VIAL ONE (11:58)
--- NOTE | 2020-01-24 14:33 | PROVIDER PROGRESS NOTE ---
Subjective - Prog Note Date Prog Note Date: 01/24/20 Prog Note Time: 12:30 - Subjective Subjective: Patient is sitting up. Has not yet been ambulating. Tolerating po. No N/V. Meyer remains in place with large UOP. Pain well controlled with pain medication; rated 5/10 without pain meds Objective - Vital Signs/Intake & Output Reviewed Vital Signs: Yes Vital Signs: Vital Signs x48h Temp Pulse Resp BP Pulse Ox 01/24/20 08:25 98.6 F 83 16 114/60 97 01/24/20 06:50 98.4 F 79 16 101/60 98 Intake & Output: Intake & Output 01/21/20 01/22/20 01/23/20 01/24/20 23:59 23:59 23:59 23:59 Intake Total 2250 2335 Output Total 900 2985 Balance 1350 -650 - Objective General Appearance: positive: No acute distress Eyes Bilateral: positive: Normal inspection Neck: positive: Nml inspection Respiratory: positive: No respiratory distress, Breath sounds nml Cardiovascular: positive: Regular rate & rhythm Abdomen: positive: Nml bowel sounds, Other (Mild distention and appropriate TTP. + BS. Port sites healing well) Skin: positive: Color nml, Warm, Dry Extremities: positive: Non-tender, No pedal edema Neurologic/Psychiatric: positive: Oriented x3 Comments/Other: Peripad with scant bloody discharge overnight Meyer with 250 cc clear urine collecting over 3 hours - Lab Results Fish Bones: 01/24/20 04:45 01/24/20 04:45 Other Labs: Lab Results x24hrs 01/24/20 01/24/20 Range/Units 04:45 04:45 WBC 10.2 (4.8-10.8) x10^3/uL RBC 3.19 L (4.20-5.40) 10^6/uL Hgb 9.8 L (12.0-16.0) g/dL Hct 30.2 L (37.0-47.0) % MCV 94.7 (81.0-99.0) fL MCH 30.7 (27.0-31.0) pg MCHC 32.5 (32.0-36.0) g/dL RDW 13.0 (12.0-15.0) % Plt Count 243 (130-450) 10^3/uL MPV 8.5 (7.9-10.8) fL Neut # (Auto) 6.9 H (1.5-6.6) 10^3/uL Lymph # (Auto) 2.2 (1.5-3.5) 10^3/uL [place] # (Auto) 1.0 (0.0-1.0) 10^3/uL Eos # (Auto) 0.0 (0.0-0.7) 10^3/uL Baso # (Auto) 0.0 (0.0-0.1) 10^3/uL Absolute Nucleated RBC 0.00 x10^3/uL Nucleated RBC % 0.0 /100WBC Sodium 137 (135-145) mmol/L Potassium 3.5 (3.5-5.0) mmol/L Chloride 104 (101-111) mmol/L Carbon Dioxide 26 (21-32) mmol/L Anion Gap 7.0 (6-13) BUN 7 (6-20) mg/dL Creatinine 0.7 (0.4-1.0) mg/dL Estimated GFR (MDRD) 90 (>89) Glucose 130 H (70-100) mg/dL Calcium 7.8 L (8.5-10.3) mg/dL Assessment/Plan - Problem List (1) H/O hysterectomy for benign disease Impression: POD#1 -Contacted [facility] and conferred with Dr. Enriquez No concern for small suture in mucosa well away from ureters No follow-up indicated UOP excellent Creatinine 0.7 OK to DC Meyer when ambulatory Routine post op care -Encourage ambulation -Transition to po pain meds -Tolerating po -Remove meyer ballon OK to discharge post void if PVR is < 50% DC meds sent electronically to [facility] instructions reviewed FU with [facility] in 1 and 6 weeks
[2020-01-24 14:41] VITALS: BP 117/73
== END 2020-01-24 15:43 | disposition home or self-care (01) ==
LOC: SDS 07:55 → MS2 19:00 → SDS 01-24 15:43
PROVIDERS: ATTEND Obstetrics & Gynecology
PROC: 0UB04ZZ Excision of Right Ovary, Percutaneous Endoscopic Approach (ICD-10-PCS; 2020-01-23)
PROC: 0UT9FZZ Resection of Uterus, Via Natural or Artificial Opening With Percutaneous Endoscopic Assistance (ICD-10-PCS; principal; 2020-01-23 09:15)
DX: N93.9 Abnormal uterine and vaginal bleeding, unspecified (principal); N80.1 Endometriosis of ovary; N73.6 Female pelvic peritoneal adhesions (postinfective); T81.500A Unspecified complication of foreign body accidentally left in body following surgical operation, initial encounter; Y65.8 Other specified misadventures during surgical and medical care; Y92.234 Operating room of hospital as the place of occurrence of the external cause; N99.85 Post endometrial ablation syndrome; N89.8 Other specified noninflammatory disorders of vagina; D25.1 Intramural leiomyoma of uterus; I10 Essential (primary) hypertension
CPT/HCPCS: 36415; 58550; 58662; 80048; 81025; 85025; A9270; J0131; J0690; J1170; J1650; J3490; J7120

== ENCOUNTER 2020-04-09 15:08 | Outpatient (CLI) | payer BC, OTHER ==
--- NOTE | 2020-04-10 13:38 | Mammography Report ---
BILATERAL DIGITAL SCREENING MAMMOGRAM 3D/2D: 04/09/2020 CLINICAL: Routine screening. Comparison is made to exams dated: 12/12/2018 mammogram, 05/06/2017 mammogram, and 08/23/2014 mammogram - [facility]. The tissue of both breasts is heterogeneously dense. This may lower the sensitivity of mammography. No significant masses, calcifications, or other findings are seen in either breast. There has been no significant interval change. IMPRESSION: NEGATIVE There is no mammographic evidence of malignancy. A 1 year screening mammogram is recommended. This exam was interpreted at Station ID: [id number]. NOTE: For mammograms, a report in lay terms will be sent to the patient. Approximately 15% of breast malignancies will not be visualized mammographically. In the management of a palpable breast mass, a negative mammogram must not discourage biopsy of a clinically suspicious lesion. Electronically Signed By: Jon Castaneda M.D. ddp/penrad:04/09/2020 16:46:06 ACR BI-RADS Category 1: Negative 3341F PARENCHYMAL PATTERN: (D) - The breast(s) demonstrate(s) heterogeneously dense fibroglandular niraj jaime. BI-RADS CATEGORY: (1) - 1 RECOMMENDATION: (ANNUAL) - Recommend routine annual screening mammography. [id number] 1 year screening LATERALITY: (B)
== END 2020-04-09 15:09 | disposition home or self-care (01) ==
LOC: DI.N 15:08
DX: Z12.31 Encounter for screening mammogram for malignant neoplasm of breast (principal)
CPT/HCPCS: 77063; 77067

== ENCOUNTER 2020-06-03 14:45 | Outpatient (CLI) | payer BC, OTHER ==
--- NOTE | 2020-06-03 16:55 | Ultrasound Report ---
PROCEDURE: Abdomen Complete INDICATIONS: RUQ ABD PAIN TECHNIQUE: Real-time scanning was performed of the abdominal and retroperitoneal organs, with image documentatio n. COMPARISON: CT abdomen pelvis 11/19/2019, pelvic ultrasound 11/19/2019 FINDINGS: Liver: Liver is normal in size and homogeneous in echotexture. Gallbladder: L bladder demonstrates no stones. Wall thickness is within normal limits measuring 1 mm. Biliary ducts: Intrahepatic bile ducts are non-dilated. Extrahepatic bile duct caliber measures 4 m m. Normal is 6-7 mm or less in diameter, or 10 mm or less post-cholecystectomy. Pancreas: Visualized portions of the pancreas are sonographically normal. Spleen: Spleen is normal in size and homogeneous in echotexture. Kidneys: Kidneys are normal in size and echotexture. Right kidney measures 11.0 cm long; left kidne y measures 10.9 cm long. Mild to moderate bilateral hydronephrosis, unresolved on post void images. R ight renal calcification is noted measuring 7 x 4 x 8 mm. No solid masses. Aorta: Visualized aorta is normal in caliber at less than 3 cm. Iliacs: Not visualized. IVC: Intrahepatic inferior vena cava is patent. Miscellaneous: No free abdominal fluid. Partially visualized prominent follicle/small ovarian cysts are noted., Noted to be present on 11/19/2019 pelvic ultrasound. IMPRESSION: 1. Mild to moderate bilateral hydronephrosis unresolved with postvoid images. Source of obstruction i s not definitively identified. As clinically indicated, further evaluation with CT is recommended. 2. Partially visualized prominent bilateral ovarian follicle/small ovarian cyst. As clinically indica juli for further evaluation and more direct comparison to prior exam on 11/19/2019, pelvic ultrasound ma y be obtained. Reviewed by: Lena Tam MD on 06/03/2020 4:53 PM PST Approved by: Lena Tam MD on 06/03/2020 4:53 PM PST Station ID: [id number]
== END 2020-06-03 14:46 | disposition home or self-care (01) ==
LOC: DI 14:45
PROVIDERS: ATTEND Family Medicine
DX: N13.30 Unspecified hydronephrosis (principal); R93.89 Abnormal findings on diagnostic imaging of other specified body structures
CPT/HCPCS: 76700

== ENCOUNTER 2020-06-23 14:36 | Outpatient (CLI) | payer BC, OTHER ==
[2020-06-23] MEDS ORDERED: IOVERSOL 320 100 ML VIAL IVP ONE ×3 (14:54→15:32)
[2020-06-23 15:18] LABS: CREATININE 0.6 mg/dL (0.4-1.0)
--- NOTE | 2020-06-23 16:55 | CT Report ---
PROCEDURE: ABDOMEN/PELVIS W/WO INDICATIONS: HYDRONEPHROSIS CONTRAST: IV CONTRAST: Optiray 320 ml: 140 PO CONTRAST: *NO PO CONTRAST TECHNIQUE: After the administration of intravenous contrast, 5 mm thick sections acquired from the diaphragms to the symphysis. 5 mm thick coronal and sagittal reformats were acquired. For radiation dose reducti on, the following was used: automated exposure control, adjustment of mA and/or kV according to rich ent size. COMPARISON: CT abdomen and pelvis with contrast dated 11/19/2019, abdominal ultrasound dated 0. FINDINGS: Image quality: Excellent. Lung bases: Lung bases are clear. Heart size is normal. Urinary system: Right kidney: 6 mm nonobstructing upper pole stone. Mild pelvocaliectasis. This is decreased from the relatively recent prior ultrasound. No renal mass. Right ureter: Mildly prominent. No stone. Left kidney: No stone or hydronephrosis. Hydronephrosis seen on relatively recent previous ultrasound has resolved. No mass. Left ureter: Normal caliber. No stone. Bladder: Smooth wall. No bladder stones. Other solid organs: Liver and spleen are normal in size and enhancement. Gallbladder is unremarkable . Biliary system is non dilated. Pancreas enhances normally. No adrenal nodules. Peritoneum and bowel: Bowel loops demonstrate normal wall thickness and caliber. No free fluid or a ir. Nodes and vessels: No retroperitoneal or mesenteric adenopathy by size criteria. Aorta and inferior vena cava are normal in size. Abdominal wall: No ventral hernias. Pelvis: No pathologic free pelvic fluid. No inguinal hernias or adenopathy. Apparent interval hyste rectomy after the previous CT. Numerous peripherally enhancing adnexal cysts bilaterally. Previously, the question of tubo-ovarian abscesses was entertained in the CT from Nov, 2019. The size of the ova steven appears slightly decreased from the previous CT. On previous image 68/3 the left ovary measured 5.7 x 4.2 cm. On current image 65/6, it measures 5.4 x 2.9 cm. The right ovary appears to be slightly decreased in size as well, previously measuring 5.0 x 3.3 cm and currently measuring 4.5 x 3.4 cm. T he ureters travel in close proximity to the ovaries. Bones: No suspicious bony lesions. No vertebral body compression fractures. IMPRESSION: 1. The process involving the ovaries is slightly improved compared to the CT from 11/19/2019. The ovari es are slightly decreased in size. 2. The recent ultrasound demonstrated mild bilateral hydronephrosis. This has improved. There is mild right pelvocaliectasis. There is no left hydronephrosis. It is possible that the process involving t he bilateral ovaries had resulted in mild bilateral hydronephrosis secondary to extrinsic effect on t he ureters. 3. Nonobstructing right renal stone. Reviewed by: Leno Espinoza MD on 06/23/2020 4:54 PM PST Approved by: Leno Espinoza MD on 06/23/2020 4:54 PM PST Station ID: [id number]
== END 2020-06-23 14:37 | disposition home or self-care (01) ==
LOC: DI 14:36
PROVIDERS: ATTEND Family Medicine
DX: N13.30 Unspecified hydronephrosis (principal); N20.0 Calculus of kidney
CPT/HCPCS: 36415; 74178; 82565; Q9967

== ENCOUNTER 2020-10-22 08:00 | Outpatient (CLI) | payer BC, OTHER ==
[2020-10-22 18:26] LABS: BASOPHILS # (AUTO) 0.1 10^3/uL (0.0-0.1); BASOPHILS % (AUTO) 0.7 %; EOSINOPHILS # (AUTO) 0.2 10^3/uL (0.0-0.7); EOSINOPHILS % (AUTO) 2.1 %; HCT - HEMATOCRIT 41.5 % (37.0-47.0); HGB - HEMOGLOBIN 13.8 g/dL (12.0-16.0); LYMPHOCYTES # (AUTO) 2.9 10^3/uL (1.5-3.5); LYMPHOCYTES % (AUTO) 38.5 %; MEAN CORPUSCULAR HEMOGLOBIN 30.9 pg (27.0-31.0); MEAN CORPUSCULAR HGB CONC 33.3 g/dL (32.0-36.0); MEAN CORPUSCULAR VOLUME 92.8 fL (81.0-99.0); MONOCYTES # (AUTO) 0.5 10^3/uL (0.0-1.0); MONOCYTES % (AUTO) 6.4 %; NEUTROPHILS # (AUTO) 3.9 10^3/uL (1.5-6.6); NEUTROPHILS % (AUTO) 51.9 %; PLT - PLATELET COUNT 403 10^3/uL (130-450); RED BLOOD COUNT 4.47 10^6/uL (4.20-5.40); RED CELL DISTRIBUTION WIDTH 12.4 % (12.0-15.0); WHITE BLOOD COUNT 7.5 x10^3/uL (4.8-10.8)
[2020-10-22 18:48] LABS: THYROID STIMULATING HORMONE 2.04 uIU/mL (0.34-5.60)
[2020-10-22 18:55] LABS: ALBUMIN 4.4 g/dL (3.2-5.5); ALBUMIN/GLOBULIN RATIO 1.2 (1.0-2.2); ALKALINE PHOSPHATASE 59 IU/L (42-121); ALT ALANINE AMINOTRANSFERASE 16 IU/L (10-60); AST ASPARTATE AMINOTRANSFERASE 18 IU/L (10-42); BILIRUBIN,TOTAL 0.5 mg/dL (0.2-1.0); BUN - BLOOD UREA NITROGEN 18 mg/dL (6-20); CALCIUM 9.9 mg/dL (8.5-10.3); CARBON DIOXIDE - CO2 28 mmol/L (21-32); CHLORIDE 98 mmol/L (101-111); CHOL/HDL RATIO 4.9 (<4.4); CHOLESTEROL 247 mg/dL; CREATININE 0.7 mg/dL (0.4-1.0); GFR - MDRD 90 (>89); GLUCOSE 95 mg/dL (70-100); HDL CHOLESTEROL 50 mg/dL; LDL CHOLESTEROL,CALCULATED 130 mg/dL; LDL/HDL RATIO 2.6 (<4.4); POTASSIUM 3.8 mmol/L (3.5-5.0); SODIUM 138 mmol/L (135-145); TOTAL PROTEIN 8.2 g/dL (6.7-8.2); TRIGLYCERIDES 337 mg/dL; VLDL CHOLESTEROL 67 mg/dL
== END 2020-10-22 23:59 | disposition home or self-care (01) ==
LOC: LAB.WCP 08:00
PROVIDERS: ATTEND Family Medicine
DX: Z00.00 Encounter for general adult medical examination without abnormal findings (principal)
CPT/HCPCS: 36415; 80053; 80061; 83721; 84443; 85025

== ENCOUNTER 2021-11-30 07:33 | Day surgery (SDC) | payer BC, OTHER ==
[2021-11-30] MEDS ORDERED: LACTATED RINGERS 1,000 ML IV ONE (07:49)
[2021-11-30] MEDS ORDERED: CEFAZOLIN SODIUM IN 0.9 % NACL 2 GM/50 ML BAG IV ONE (07:55)
--- NOTE | 2021-11-30 08:13 | ANESTHESIA ---
Pre-Anesthesia VS, & Labs - Diagnosis forehead lipoma - Procedure excision of forehead lipoma Vital Signs: Temp Pulse Resp BP Pulse Ox 35.8 C L 71 16 108/85 H 98 11/30/21 07:49 11/30/21 07:49 11/30/21 07:49 11/30/21 07:49 11/30/21 07:49 Height: 4 ft 11 in Weight (kg): 57.7 kg Body Mass Index: 25.7 BMI Classification: Overweight - NPO >8 hours - Is Patient ?: No Home Medications and Allergies Home Medications: Ambulatory Orders Cetirizine HCl [Allergy] 10 mg PO DAILY 11/27/21 Cetirizine HCl [Allergy] 10 mg PO DAILY 11/27/21 Allergies/Adverse Reactions: Allergies Allergy/AdvReac Type Severity Reaction Status Date / Time aspirin Allergy facial Verified 11/19/19 17:45 swelling ibuprofen Allergy facial Verified 11/19/19 17:45 swelling naproxen [From Naprosyn] Allergy facial Verified 11/19/19 17:45 swelling shrimp Allergy Anaphylaxis Verified 01/21/20 10:17 Anes History & Medical History - Anesthetic History Anesthesia Complications: reports: No previous complications - Medical History Cardiovascular: reports: Hypertension Pulmonary: reports: Pneumonia Gastrointestinal: reports: None Urinary: reports: None Neuro: reports: None Musculoskeletal: reports: Chronic back pain Endocrine/Autoimmune: reports: None Blood Disorders: reports: None Skin: reports: None Smoking Status: Never smoker History of Cancer?: No - Surgical History General: reports: Other Gynecologic: reports: Hysterectomy, Other Exam General: Alert, Oriented x3 Dental: WNL Mouth Opening: Greater than 4 Fingerbreadths Neck Mobility: Normal Mallampati classification: II Respiratory: Lungs clear Cardiovascular: Regular rate Plan Anesthesia Type: General Consent for Procedure(s) Verified and Reviewed: Yes Code Status: Attempt Resuscitation ASA classification: 2-Mild systemic disease Is this case an emergency?: No
[2021-11-30] MEDS ORDERED: ONDANSETRON 4 MG/2 ML VIAL IVP PRN (08:17)
[2021-11-30] MEDS ORDERED: ATROPINE ABBOJECT 1 MG/10 ML SYRINGE IVP PRN (08:17)
[2021-11-30] MEDS ORDERED: ePHEDrine 50 MG/ML VIAL IVP PRN (08:17)
[2021-11-30] MEDS ORDERED: NALOXONE 0.4 MG/ML VIAL IVP PRN (08:17)
[2021-11-30] MEDS ORDERED: METOCLOPRAMIDE 10 MG/2 ML VIAL IVP PRN (08:17)
[2021-11-30] MEDS ORDERED: HYDROmorphone 0.5 MG/0.5 ML SYRINGE IVP PRN (08:17)
[2021-11-30] MEDS ORDERED: fentaNYL 100 MCG/2 ML VIAL IVP PRN (08:17)
[2021-11-30] MEDS ORDERED: MORPHINE 2 MG/ML CARPUJECT IVP PRN (08:17)
[2021-11-30] MEDS ORDERED: PROPOFOL 200 MG/20 ML VIAL IVP ONE (08:44)
[2021-11-30] MEDS ORDERED: LIDOCAINE-MPF 2% 5 ML VIAL ONE (08:44)
[2021-11-30] MEDS ORDERED: DEXAMETHASONE 4 MG/ML VIAL ONE (08:45)
[2021-11-30] MEDS ORDERED: fentaNYL 100 MCG/2 ML VIAL ONE (08:45)
[2021-11-30] MEDS ORDERED: ONDANSETRON 4 MG/2 ML VIAL ONE (08:45)
[2021-11-30] MEDS ORDERED: BUPIVACAINE 0.25% PF 10 ML VIAL ONE (08:49)
[2021-11-30] MEDS ORDERED: LIDOCAINE MPF 2%-EPI 1:200000 20 ML VIAL ONE (08:50)
[2021-11-30] MEDS ORDERED: LACTATED RINGERS 1,000 ML IV SCH (09:00)
[2021-11-30] MEDS ORDERED: LIDOCAINE 2%-EPI 1:100000 20 ML MDV SUBQ ONE (09:00)
[2021-11-30] MEDS ORDERED: BUPIVACAINE 0.25% PF 10 ML VIAL SUBQ ONE (09:00)
[2021-11-30] MEDS ORDERED: BACITRACIN ZINC OINT 1 PACKET TOP ONE ×3 (09:09→09:46)
--- NOTE | 2021-11-30 09:46 | OPERATIVE REPORT ---
Operative Report - General Procedure Date: 11/30/21 Planned Procedure: Excisional biopsy of painful forehead lipoma. Pre-Op Diagnosis: Painful and troublesome forehead lipoma Procedure Performed: Excisional biopsy of forehead lipomatous mass Post Op Diagnosis: Painful and troublesome forehead lipoma - Procedure Note Primary Surgeon: Sam Anesthesia Provider: VANESSA Moreno Anesthesia Technique: General LMA Pathology: Mass to pathology in formalin Estimated Blood Loss (mL): 5 Findings: 2.2 cm lipomatous mass Complications: None apparent - Other Other Information/Narrative: After obtaining informed consent, the patient is brought to the operating room placed in the supine position on operating table. Following successful induction of anesthesia, appropriate padding of all bony prominences, and placement of appropriate monitors, the scalp and forehead region were prepped and draped in the standard surgical fashion. A timeout was held per scope protocol. All elements of the surgical safety checklist were followed before, during, and after the procedure. We began by infiltrating a mixture of local anesthetics in and around the lesion. The hair had been packed down using antibiotic ointment. Incision was then created in the direction of the hairline approximately 1 cm posterior to the hairline. This was carried through the skin and subcutaneous tissue directly over the lipomatous mass. The mass was then sharply dissected free from the overlying galea and underlying dermis. It did come out in pieces and was not well-circumscribed. The wound was then checked for hemostasis. It was closed with interrupted Prolene sutures. Antibiotic ointment was applied to the skin. All sponge, needle, and instrument counts were correct at the conclusion the case. The patient was allowed to wake from anesthesia without difficulty and taken to the postanesthesia care unit in good condition.
[2021-11-30] MEDS ORDERED: LACTATED RINGERS 400 ML IV ONE (09:48)
[2021-11-30 10:58] VITALS: BP 118/74
--- NOTE | 2021-11-30 14:17 | ANESTHESIA POST OP EVALUATION ---
Anesthesia Post Eval - Post Anesthesia Eval Vitals: Last Vital Signs Temp 36.4 C L 11/30/21 10:45 Pulse 64 11/30/21 10:45 Resp 14 11/30/21 10:45 BP 118/74 11/30/21 10:45 Pulse Ox 100 11/30/21 10:45 CV Function Including HR & BP: Stable Pain Control: Satisfactory Nausea & Vomiting: Negative Mental Status: Baseline Respiratory Status: Airway Patent Hydration Status: Satisfactory Anesthesia Complications: None
== END 2021-11-30 07:34 | disposition home or self-care (01) ==
LOC: SDS 07:33
PROVIDERS: ATTEND Surgery
PROC: 0JB00ZZ Excision of Scalp Subcutaneous Tissue and Fascia, Open Approach (ICD-10-PCS; principal; 2021-11-30 08:45)
DX: D17.0 Benign lipomatous neoplasm of skin and subcutaneous tissue of head, face and neck (principal)
CPT/HCPCS: 21012; A9270; J0690; J7120

== ENCOUNTER 2022-09-06 08:27 | Outpatient (CLI) | payer OTHER ==
[2022-09-06 12:28] LABS: BASOPHILS # (AUTO) 0.1 10^3/uL (0.0-0.1); BASOPHILS % (AUTO) 0.9 %; EOSINOPHILS # (AUTO) 0.2 10^3/uL (0.0-0.7); EOSINOPHILS % (AUTO) 2.8 %; HCT - HEMATOCRIT 41.8 % (37.0-47.0); HGB - HEMOGLOBIN 13.6 g/dL (12.0-16.0); LYMPHOCYTES % (AUTO) 35.3 %; MEAN CORPUSCULAR HEMOGLOBIN 31.1 pg (27.0-31.0); MEAN CORPUSCULAR HGB CONC 32.5 g/dL (32.0-36.0); MEAN CORPUSCULAR VOLUME 95.7 fL (81.0-99.0); MEAN PLATELET VOLUME 9.1 fL (7.9-10.8); MONOCYTES # (AUTO) 0.5 10^3/uL (0.0-1.0); MONOCYTES % (AUTO) 9.1 %; NEUTROPHILS # (AUTO) 2.9 10^3/uL (1.5-6.6); NEUTROPHILS % (AUTO) 51.5 %; PLT - PLATELET COUNT 429 10^3/uL (130-450); RED BLOOD COUNT 4.37 10^6/uL (4.20-5.40); RED CELL DISTRIBUTION WIDTH 12.4 % (12.0-15.0); WHITE BLOOD COUNT 5.7 x10^3/uL (4.8-10.8)
[2022-09-06 13:26] LABS: ALBUMIN 4.1 g/dL (3.2-5.5); ALBUMIN/GLOBULIN RATIO 1.1 (1.0-2.2); ALKALINE PHOSPHATASE 50 IU/L (42-121); ALT ALANINE AMINOTRANSFERASE 22 IU/L (10-60); AST ASPARTATE AMINOTRANSFERASE 19 IU/L (10-42); BILIRUBIN,TOTAL 0.8 mg/dL (0.2-1.0); BUN - BLOOD UREA NITROGEN 13 mg/dL (6-20); CALCIUM 9.6 mg/dL (8.5-10.3); CARBON DIOXIDE - CO2 26 mmol/L (21-32); CHLORIDE 102 mmol/L (101-111); CHOL/HDL RATIO 4.7 (<4.4); CHOLESTEROL 242 mg/dL; CREATININE 0.6 mg/dL (0.4-1.0); GFR - MDRD 107 (>89); GLUCOSE 105 mg/dL (70-100); HDL CHOLESTEROL 52 mg/dL; LDL CHOLESTEROL,CALCULATED 171 mg/dL; LDL/HDL RATIO 3.3 (<4.4); SODIUM 137 mmol/L (135-145); TOTAL PROTEIN 7.9 g/dL (6.7-8.2); TRIGLYCERIDES 93 mg/dL; VLDL CHOLESTEROL 19 mg/dL
== END 2022-09-06 08:28 | disposition home or self-care (01) ==
LOC: LAB.N 08:27
PROVIDERS: ATTEND Physician Assistant
DX: I10 Essential (primary) hypertension (principal); Z13.220 Encounter for screening for lipoid disorders
CPT/HCPCS: 36415; 80053; 80061; 83721; 85025

== ENCOUNTER 2023-09-24 09:28 | Outpatient (CLI) | payer OTHER ==
[2023-09-24 19:06] LABS: BASOPHILS % (AUTO) 0.8 %; EOSINOPHILS # (AUTO) 0.2 10^3/uL (0.0-0.7); EOSINOPHILS % (AUTO) 3.1 %; HCT - HEMATOCRIT 42.9 % (37.0-47.0); HGB - HEMOGLOBIN 13.8 g/dL (12.0-16.0); LYMPHOCYTES # (AUTO) 2.4 10^3/uL (1.5-3.5); MEAN CORPUSCULAR HEMOGLOBIN 30.6 pg (27.0-31.0); MEAN CORPUSCULAR HGB CONC 32.2 g/dL (32.0-36.0); MEAN CORPUSCULAR VOLUME 95.1 fL (81.0-99.0); MONOCYTES # (AUTO) 0.4 10^3/uL (0.0-1.0); MONOCYTES % (AUTO) 8.3 %; NEUTROPHILS # (AUTO) 2.1 10^3/uL (1.5-6.6); NEUTROPHILS % (AUTO) 40.6 %; PLT - PLATELET COUNT 375 10^3/uL (130-450); RED BLOOD COUNT 4.51 10^6/uL (4.20-5.40); RED CELL DISTRIBUTION WIDTH 12.6 % (12.0-15.0); WHITE BLOOD COUNT 5.1 x10^3/uL (4.8-10.8)
[2023-09-24 19:25] LABS: ALBUMIN 4.5 g/dL (3.2-5.5); ALBUMIN/GLOBULIN RATIO 1.4 (1.0-2.2); ALKALINE PHOSPHATASE 58 IU/L (42-121); ALT ALANINE AMINOTRANSFERASE 13 IU/L (10-60); AST ASPARTATE AMINOTRANSFERASE 14 IU/L (10-42); BILIRUBIN,TOTAL 0.5 mg/dL (0.2-1.0); BUN - BLOOD UREA NITROGEN 14 mg/dL (6-20); CALCIUM 9.9 mg/dL (8.5-10.3); CARBON DIOXIDE - CO2 28 mmol/L (21-32); CHLORIDE 105 mmol/L (101-111); CHOL/HDL RATIO 4.5 (<4.4); CHOLESTEROL 238 mg/dL; CREATININE 0.7 mg/dL (0.6-1.3); GFR - MDRD 89 (>89); GLUCOSE 103 mg/dL (74-104); HDL CHOLESTEROL 53 mg/dL; LDL CHOLESTEROL,CALCULATED 157 mg/dL; POTASSIUM 3.8 mmol/L (3.5-4.5); SODIUM 139 mmol/L (135-145); TOTAL PROTEIN 7.8 g/dL (6.4-8.9); TRIGLYCERIDES 140 mg/dL (48-352); VLDL CHOLESTEROL 28 mg/dL
[2023-09-24 19:34] LABS: THYROID STIMULATING HORMONE 2.21 uIU/mL (0.34-5.60)
== END 2023-09-24 09:29 | disposition home or self-care (01) ==
LOC: LAB.N 09:28
PROVIDERS: ATTEND Physician Assistant
DX: I10 Essential (primary) hypertension (principal); R13.19 Other dysphagia; E78.5 Hyperlipidemia, unspecified
CPT/HCPCS: 36415; 80050; 80061; 83721

== ENCOUNTER 2024-03-26 07:26 | Outpatient (CLI) | payer OTHER ==
[2024-03-26 12:35] LABS: BASOPHILS % (AUTO) 0.6 %; EOSINOPHILS # (AUTO) 0.1 10^3/uL (0.0-0.7); EOSINOPHILS % (AUTO) 1.3 %; HCT - HEMATOCRIT 43.7 % (37.0-47.0); HGB - HEMOGLOBIN 14.4 g/dL (12.0-16.0); LYMPHOCYTES # (AUTO) 2.1 10^3/uL (1.5-3.5); LYMPHOCYTES % (AUTO) 39.6 %; MEAN CORPUSCULAR HEMOGLOBIN 30.8 pg (27.0-31.0); MEAN CORPUSCULAR VOLUME 93.6 fL (81.0-99.0); MEAN PLATELET VOLUME 9.1 fL (7.9-10.8); MONOCYTES # (AUTO) 0.3 10^3/uL (0.0-1.0); MONOCYTES % (AUTO) 5.8 %; NEUTROPHILS # (AUTO) 2.8 10^3/uL (1.5-6.6); NEUTROPHILS % (AUTO) 52.5 %; PLT - PLATELET COUNT 369 10^3/uL (130-450); RED BLOOD COUNT 4.67 10^6/uL (4.20-5.40); WHITE BLOOD COUNT 5.3 x10^3/uL (4.8-10.8)
[2024-03-26 12:44] LABS: ALBUMIN 4.9 g/dL (3.2-5.5); ALBUMIN/GLOBULIN RATIO 1.6 (1.0-2.2); BILIRUBIN,TOTAL 0.4 mg/dL (0.2-1.0); CALCIUM 9.7 mg/dL (8.5-10.3); CREATININE 0.7 mg/dL (0.6-1.3)
[2024-03-26 12:51] LABS: THYROID STIMULATING HORMONE 3.12 uIU/mL (0.34-5.60)
[2024-03-26 12:57] LABS: FERRITIN 161.8 ng/mL (11.0-306.8)
== END 2024-03-26 07:27 | disposition home or self-care (01) ==
LOC: LAB.N 07:26
PROVIDERS: ATTEND Nurse Practitioner
DX: R53.83 Other fatigue (principal)
CPT/HCPCS: 36415; 80050; 82728; 83540; 84466